=== PATIENT | female | born 1955 | race Caucasian/White ===

== ENCOUNTER → 2017-02-27 | Outpatient (CLI) | payer OTHER, MEDICAID ==
[2016-07-18 16:21] VITALS: BP 154/70
[2017-02-27 09:56] LABS: BASOPHILS # (AUTO) 0.1 X10^3/uL (0.0-0.1); BASOPHILS % (AUTO) 0.5 % (0.2-1.0); EOSINOPHILS # (AUTO) 0.8 x10^3/uL (0.0-0.2); EOSINOPHILS % (AUTO) 4.9 % (0.9-2.9); HEMATOCRIT 41.8 % (36.0-47.0); LYMPHOCYTES # (AUTO) 2.4 X10^3/uL (1.3-2.9); LYMPHOCYTES % (AUTO) 14.4 % (21.0-51.0); MEAN CORPUSCULAR HGB CONC 33.4 g/dL (33.0-35.0); MONOCYTES # (AUTO) 0.8 x10^3/uL (0.3-0.8); MONOCYTES % (AUTO) 4.9 % (0.0-13.0); NEUTROPHILS # (AUTO) 12.3 x10^3/uL (2.2-4.8); NEUTROPHILS % (AUTO) 75.3 % (42.0-75.0); PLATELET COUNT 346 X10^3/uL (150.0-450.0); RED BLOOD COUNT 4.98 X10^6/uL (3.5-5.4); WHITE BLOOD COUNT 16.3 X10^3/uL (3.6-10.0)
[2017-02-27 10:17] LABS: ALANINE AMINOTRANSFERASE 57 Units/L (12-78); ALKALINE PHOSPHATASE 109 Units/L (46-116); ASPARTATE AMINO TRANSFERASE 50 Units/L (15-37); BLOOD UREA NITROGEN 18 mg/dL (7-18); CALCIUM 8.9 mg/dL (8.5-10.1); CARBON DIOXIDE 22.1 mmol/L (21-32); CHLORIDE 107 mmol/L (98-107); CHOL/HDL RATIO 2.8 (0.0-5.0); CHOLESTEROL 124 mg/dL (0-200); CREATININE 1.37 mg/dL (0.55-1.02); GLUCOSE 85 mg/dL (65-99); HDL CHOLESTEROL 45 mg/dL (40-60); SODIUM 141 mmol/L (136-145); TOTAL PROTEIN 7.8 g/dL (6.4-8.2); TRIGLYCERIDES 116 mg/dL (0-150); eGFR BLACK RACES 50 (>60); eGFR NON BLACK RACES 42 (>60)
== END ==
LOC: LAB 09:15
PROVIDERS: ATTEND Nurse Practitioner Family
DX: E78.2 Mixed hyperlipidemia (principal); M85.9 Disorder of bone density and structure, unspecified
CPT/HCPCS: 36415; 80053; 80061; 82306; 85025

== ENCOUNTER → 2017-05-23 | Outpatient (CLI) | payer OTHER, MEDICAID ==
[2016-07-18 16:21] VITALS: BP 154/70
[2017-05-23 10:52] LABS: BASOPHILS % (AUTO) 0.4 % (0.2-1.0); EOSINOPHILS # (AUTO) 0.1 x10^3/uL (0.0-0.2); EOSINOPHILS % (AUTO) 1.2 % (0.9-2.9); HEMOGLOBIN 12.8 g/dL (12.0-16.0); LYMPHOCYTES % (AUTO) 10.5 % (21.0-51.0); MEAN CORPUSCULAR HEMOGLOBIN 29.2 pg (27.0-34.0); MEAN CORPUSCULAR HGB CONC 33.8 g/dL (33.0-35.0); MEAN CORPUSCULAR VOLUME 86.6 fL (80.0-100.0); MEAN PLATELET VOLUME 8.1 fL (7.4-11.0); MONOCYTES # (AUTO) 0.7 x10^3/uL (0.3-0.8); MONOCYTES % (AUTO) 7.2 % (0.0-13.0); NEUTROPHILS # (AUTO) 7.5 x10^3/uL (2.2-4.8); NEUTROPHILS % (AUTO) 80.7 % (42.0-75.0); PLATELET COUNT 305 X10^3/uL (150.0-450.0); RED BLOOD COUNT 4.39 X10^6/uL (3.5-5.4); WHITE BLOOD COUNT 9.3 X10^3/uL (3.6-10.0)
[2017-05-23 10:59] LABS: ALBUMIN 2.8 g/dL (3.4-5.0); CALCIUM 8.8 mg/dL (8.5-10.1); COR CA(FOR HYPOALB) 9.8 mg/dL (8.5-10.1); CREATININE 1.18 mg/dL (0.55-1.02); TOTAL PROTEIN 6.7 g/dL (6.4-8.2)
--- NOTE | 2017-05-23 14:41 | RAD ---
HISTORY: Cough and wheezing Study: Two views of the chest Comparison: August 07, 2016 Findings: The trachea is midline. The cardiac silhouette is unremarkable. The lungs are clear without focal i nfiltrate or effusion. IMPRESSION: 1. No acute cardiopulmonary disease. Reported By:
== END ==
LOC: LAB 10:20
PROVIDERS: ATTEND Nurse Practitioner Family
DX: R68.83 Chills (without fever) (principal); R06.2 Wheezing
CPT/HCPCS: 36415; 71020; 80053; 85025

== ENCOUNTER → 2017-05-28 | Outpatient (CLI) | payer OTHER, MEDICAID ==
[2016-07-18 16:21] VITALS: BP 154/70
== END ==
LOC: LAB 13:28
PROVIDERS: ATTEND Nurse Practitioner Family
DX: E87.6 Hypokalemia (principal)
CPT/HCPCS: 36415; 84132

== ENCOUNTER 2017-06-17 08:53 | Emergency (ER) | payer OTHER, MEDICAID ==
[2017-06-17 09:13] VITALS: BMI 26.2
[2017-06-17] MEDS ORDERED: NS 1000 ML 1,000 ML IV ONE ×2 (09:24→12:27)
--- NOTE | 2017-06-17 09:24 | ED.ABDFE ---
HPI - Time seen Time seen: 10:10 - PCP Primary Care Physician: MOISE GALVIN - Complaint Chief Complaint Doctors Comments: patient reports macy she had abdominal pain for 7-8 months. The pain is epigastric severity of 10, quality sharp, duration months, timing intermitternt, modifyintg factors food. She denies alcohol or cigaretts. Chief Complaint:: EMS TONED OUT TO PT WITH N/V AND ABD PAIN.....ALL WEEKEND LONG .. PT C/O BEING WEAK.. - Source History Provided: Patient, EMS - Mode of arrival Mode of Arrival: EMS - Timing Onset of Chief Complaint: 06/22/17 PMH - PMH Past Medical History: Yes Past Medical History: Angina, Anxiety, Asthma, COPD, Depression, Dyslipidemia, GERD, Hypertension, Seizures Past Surgical History: Yes Surgical History: , Hysterectomy, Joint Replacement, Other - Family History History of Family Medical Conditions: Yes Family Medical History: Diabetes Mellitus, Cancer, Hypertension - Social History Does patient currently use any type of tobacco product: No Have you used tobacco products in the last 12 months: No Type of Tobacco Use: None Does any household member use tobacco: No Alcohol Use: None Do you use any recreational Drugs:: No Lives With: Family Lives Where: Home - infectious screening In the last 2 months have you had wt loss of >10#?: NO Have you had fever, night sweats or hemotysis?: No Have you traveled outside the country in the last 6 months?: No Isolation: Standard ROS - Review of Systems ENTM: No Symptoms Reported Respiratoy: No Symptoms Reported Cardiovascular: No Symptoms Reported Gastrointestinal/Abdominal: No Symptoms Reported Genitourinary: No Symptoms Reported Neurological: No Symptoms Reported Musculoskeletal: No Symptoms Reported Integumentary: No Symptoms Reported Hematologic/Lymphatic: No Symptoms Reported Endocrine: No Symptoms Reported Psychiatric: No Symptoms Reported All Other Systems: Reviewed and Negative PE - Vital Signs Vitals: Temperature 97.8 F Pulse Rate [Brachial] 82 Pulse Rate 104 Respiratory Rate 18 Blood Pressure [Left Arm] 127/67 Blood Pressure [Right Arm] 166/78 Blood Pressure 131/86 O2 Sat by Pulse Oximetry 97 - General General Appearance: Alert, In No Apparent Distress - Head Head Exam: Normal Inspection, Atraumatic - Eyes Eye exam: Normal Appearance, PERRL, EOMI - ENT ENT Exam: Mucous Membranes Dry - Neck Neck Exam: Normal Inspection, Full ROM - Chest Chest Inspection: Normal Inspection, Symmetric Chest Wall Rise - Respiratory Respiratory Exam: Normal Lung Sounds Bilat Respiratory Exam: Bilateral Clear to Auscultation - Cardiovascular Cardiovascular Exam: Regular Rate - Abdominal Exam Abdominal Exam: Soft, Tenderness (epigastric area), Dimnished Bowel Sounds. negative: Mass Abdominal Tenderness: Epigastrium - Rectal Rectal Exam: Deferred - Back Back Exam: Normal Inspection - Extremeties Extremities Exam: Normal Inspection - External Exam: Female: Deferred : Speculum Exam (Female): Deferred : Bimanual Exam (female): Deferred - Neurologic Neurological Exam: Alert, Oriented X3, CN II-XII Intact - Psychiatric Psychiatric Exam: Normal Affect - Skin Skin Exam: Warm, Dry, Intact Course - Treatment Treatment: Hydratin 2L NS - Reevaluation 1st: Improved ROR - Labs Reviewed Laboratory Results Reviewed?: Yes (H Pylori) Result Diagrams: 06/17/17 10:02 06/17/17 10:02 Laboratory: WBC 22.6 X10^3/uL (3.6-10.0) H 06/17/17 10:02 RBC 5.03 X10^6/uL (3.5-5.4) 06/17/17 10:02 Hgb 14.8 g/dL (12.0-16.0) 06/17/17 10:02 Hct 41.5 % (36.0-47.0) 06/17/17 10:02 MCV 82.6 fL (80.0-100.0) 06/17/17 10:02 MCH 29.4 pg (27.0-34.0) 06/17/17 10:02 MCHC 35.6 g/dL (33.0-35.0) H 06/17/17 10:02 RDW 14.7 % (11.6-16.5) 06/17/17 10:02 Plt Count 365 X10^3/uL (150.0-450.0) 06/17/17 10:02 Plt Count Comment Adequate (ADEQUATE) 06/17/17 10:02 MPV 8.8 fL (7.4-11.0) 06/17/17 10:02 Neut % 87.0 % (42.0-75.0) H 06/17/17 10:02 Lymph % 4.9 % (21.0-51.0) L 06/17/17 10:02 [place] % 7.2 % (0.0-13.0) 06/17/17 10:02 Eos % 0.7 % (0.9-2.9) L 06/17/17 10:02 Baso % 0.2 % (0.2-1.0) 06/17/17 10:02 Neut # 19.7 x10^3/uL (2.2-4.8) H 06/17/17 10:02 Lymph # 1.1 X10^3/uL (1.3-2.9) L 06/17/17 10:02 [place] # 1.6 x10^3/uL (0.3-0.8) H 06/17/17 10:02 Eos # 0.2 x10^3/uL (0.0-0.2) 06/17/17 10:02 Baso # 0.0 X10^3/uL (0.0-0.1) 06/17/17 10:02 Absolute Nucleated RBC 0.1 /100WBC 06/17/17 10:02 Total Counted 100 06/17/17 10:02 Neutrophils % (Manual) 88 % (39-76) H 06/17/17 10:02 Lymphocytes % (Manual) 5 % (13-43) L 06/17/17 10:02 Monocytes % (Manual) 6 % (4-9) 06/17/17 10:02 Eosinophils % (Manual) 1 % (0-6) 06/17/17 10:02 Plt Morphology Comment Normal (NORMAL) 06/17/17 10:02 RBC Morphology Normal (NORMAL) 06/17/17 10:02 Sodium 139 mmol/L (136-145) 06/17/17 10:02 Corrected Sodium 139 mmol/L (136-145) 06/17/17 10:02 Potassium 3.3 mmol/L (3.5-5.1) L 06/17/17 10:02 Chloride 102 mmol/L (98-107) 06/17/17 10:02 Carbon Dioxide 23.4 mmol/L (21-32) 06/17/17 10:02 BUN 38 mg/dL (7-18) H 06/17/17 10:02 Creatinine 2.55 mg/dL (0.55-1.02) H 06/17/17 10:02 Est GFR (MDRD) Af Amer 25 (>60) L 06/17/17 10:02 Est GFR (MDRD) Non-Af 20 (>60) L 06/17/17 10:02 Glucose 112 mg/dL (65-99) H 06/17/17 10:02 Calcium 8.4 mg/dL (8.5-10.1) L 06/17/17 10:02 Corrected Calcium 9.6 mg/dL (8.5-10.1) 06/17/17 10:02 Total Bilirubin 0.40 mg/dL (0.2-1.0) 06/17/17 10:02 AST 669 Units/L (15-37) H 06/17/17 10:02 ALT 479 Units/L (12-78) H 06/17/17 10:02 Alkaline Phosphatase 116 Units/L (46-116) 06/17/17 10:02 Total Protein 6.9 g/dL (6.4-8.2) 06/17/17 10:02 Albumin 2.5 g/dL (3.4-5.0) L 06/17/17 10:02 Globulin 4.4 g/dL (2.5-4.5) 06/17/17 10:02 Albumin/Globulin Ratio 0.6 Ratio (1.1-2.1) L 06/17/17 10:02 Specimen Type Clean catch urine 06/17/17 11:37 Urine Color Emilie (YELLOW) 06/17/17 11:37 Urine Appearance Hazy (CLEAR) 06/17/17 11:37 Urine pH 6.0 (5.0 - 8.0) 06/17/17 11:37 Ur Specific [place] 1.015 (1.000-1.030) 06/17/17 11:37 Urine Protein 3+ (NEGATIVE) 06/17/17 11:37 Urine Glucose (UA) Negative (NEGATIVE) 06/17/17 11:37 Urine Ketones Negative (NEGATIVE) 06/17/17 11:37 Urine Occult Blood 5+ (NEGATIVE) 06/17/17 11:37 Urine Nitrite Negative (NEGATIVE) 06/17/17 11:37 Urine Bilirubin Negative (NEGATIVE) 06/17/17 11:37 Urine Urobilinogen Normal (NORMAL) 06/17/17 11:37 Ur Leukocyte Esterase 1+ (NEGATIVE) 06/17/17 11:37 Urine RBC 2-5 /HPF (NEGATIVE) 06/17/17 11:37 Urine WBC 4-8 /HPF (NEGATIVE) 06/17/17 11:37 Ur Squamous Epith Cells Moderate /HPF (NEGATIVE) 06/17/17 11:37 Amorphous Sediment Trace /HPF (NEGATIVE) 06/17/17 11:37 Urine Bacteria Negative /HPF (NEGATIVE) 06/17/17 11:37 Fine Granular Casts Few /LPF (NEGATIVE) 06/17/17 11:37 Ur Culture Indicated? No/not indicated 06/17/17 11:37 H. pylori IgG Antibody Positive (NEGATIVE) A 06/17/17 10:02 - XRAY XRAY Interpreted by: Radiologist (KUb:Prominent but nonspecifif bowel gas that may reflect a mild ileus or gastroenteritis.) - Diagnosis Discharge Problem: Dehydration with hyponatremia, Abnormal LFTs (liver function tests) Gastritis Qualifiers: Gastritis type: other gastritis Chronicity: acute Gastritis bleeding: without bleeding Qualified Code(s): K29.00 - Acute gastritis without bleeding - Discharge Plan Condition: Stable - Follow ups/Referrals Follow ups/Referrals: NFD,None [Primary Care Provider] - 3 days - Instructions
[2017-06-17] MEDS ORDERED: TORADOL 30 MG VIAL IVP ONE (09:26)
[2017-06-17] MEDS ORDERED: TORADOL 30 MG VIAL ONE (09:29)
[2017-06-17] MEDS ORDERED: NS 1000 ML 1,000 ML ONE ×2 (09:29→12:12)
[2017-06-17 10:10] LABS: BASOPHILS % (AUTO) 0.2 % (0.2-1.0); EOSINOPHILS # (AUTO) 0.2 x10^3/uL (0.0-0.2); EOSINOPHILS % (AUTO) 0.7 % (0.9-2.9); HEMATOCRIT 41.5 % (36.0-47.0); HEMOGLOBIN 14.8 g/dL (12.0-16.0); LYMPHOCYTES # (AUTO) 1.1 X10^3/uL (1.3-2.9); LYMPHOCYTES % (AUTO) 4.9 % (21.0-51.0); MEAN CORPUSCULAR HEMOGLOBIN 29.4 pg (27.0-34.0); MEAN CORPUSCULAR HGB CONC 35.6 g/dL (33.0-35.0); MEAN CORPUSCULAR VOLUME 82.6 fL (80.0-100.0); MEAN PLATELET VOLUME 8.8 fL (7.4-11.0); MONOCYTES # (AUTO) 1.6 x10^3/uL (0.3-0.8); MONOCYTES % (AUTO) 7.2 % (0.0-13.0); NEUTROPHILS # (AUTO) 19.7 x10^3/uL (2.2-4.8); PLATELET COUNT 365 X10^3/uL (150.0-450.0); RED BLOOD COUNT 5.03 X10^6/uL (3.5-5.4); RED CELL DISTRIBUTION WIDTH 14.7 % (11.6-16.5)
[2017-06-17 10:18] LABS: WHITE BLOOD COUNT 22.6 X10^3/uL (3.6-10.0)
[2017-06-17 10:22] LABS: PLATELET MORPHOLOGY COMMENT NORMAL (NORMAL)
[2017-06-17 10:25] LABS: ALBUMIN 2.5 g/dL (3.4-5.0); CALCIUM 8.4 mg/dL (8.5-10.1); CARBON DIOXIDE 23.4 mmol/L (21-32); COR CA(FOR HYPOALB) 9.6 mg/dL (8.5-10.1); CREATININE 2.55 mg/dL (0.55-1.02); TOTAL PROTEIN 6.9 g/dL (6.4-8.2)
--- NOTE | 2017-06-17 10:33 | RAD ---
HISTORY: Abdominal pain, epigastric Study: KUB Comparison: None Findings: Evaluation of the abdomen demonstrates a prominent amount of large and small bowel gas without abnorm al distention. No free air is suggested. No pathological soft tissue mass or calcification can be ob served. There is a partially visualized left hip prosthesis.. IMPRESSION: 1. Prominent but nonspecific bowel gas that may reflect a mild ileus or gastroenteritis Reported By:
[2017-06-17] MEDS ORDERED: K-DUR TAB 20 MEQ PO ONE ×2 (11:15→11:27)
[2017-06-17 11:44] LABS: BILIRUBIN,URINE NEGATIVE (NEGATIVE); BLOOD/HEMOGLOBIN,URINE 5+ (NEGATIVE); GLUCOSE, URINE NEGATIVE (NEGATIVE); KETONES,URINE NEGATIVE (NEGATIVE); LEUKOCYTE ESTERASE ,URINE 1+ (NEGATIVE); NITRITES,URINE NEGATIVE (NEGATIVE); PROTEIN,URINE 3+ (NEGATIVE); UROBILINOGEN,URINE NORMAL (NORMAL)
[2017-06-17 11:56] LABS: AMORPHOUS SEDIMENT,UR TRACE /HPF (NEGATIVE); APPEARANCE,URINE HAZY (CLEAR); BACTERIA,URINE NEGATIVE /HPF (NEGATIVE); COLOR,URINE AMBER (YELLOW); SQUAMOUS EPITHELIAL CELL,UR MODERATE /HPF (NEGATIVE)
[2017-06-17 12:00] LABS: FINE GRANULAR CASTS,URINE FEW /LPF (NEGATIVE)
[2017-06-17] MEDS ORDERED: LEVSIN/MAALOX/LIDOC VISC ONE (12:07)
[2017-06-17] MEDS ORDERED: LEVSIN/MAALOX/LIDOC VISC PO ONE (12:08)
[2017-06-17 14:00] VITALS: BP 128/61
== END 2017-06-17 14:25 | disposition home or self-care (01) ==
LOC: ER 08:53
DX: K59.00 Constipation, unspecified (principal); E86.0 Dehydration; E87.1 Hypo-osmolality and hyponatremia; R94.5 Abnormal results of liver function studies
CPT/HCPCS: 36415; 74000; 80053; 81001; 85025; 86677; 96365; 96367; 96374; 99283; A4222; J1885

== ENCOUNTER 2021-02-15 17:38 | Observation (INO) ==
[2021-02-15] MEDS ORDERED: XANAX PO PRN (18:01)
[2021-02-15] MEDS ORDERED: ZOFRAN INJ 4 MG VIAL IVP PRN (18:01)
--- NOTE | 2021-02-15 18:05 | DR.H&P ---
H&P - History & Physical for Day of: H&P Date: 02/15/21 - Chief Complaint Chief Complaint: "CANT KEEP ANYTHING DOWN", CHOKING - History of Present Illness History of Present Illness: PT IS 65 WF, DIRECT ADMIT FROM DR PHIPPS OFFICE WITH CO INTRACTABLE NV AND DYSPHAGIA. PT HAS PMH OF GERD WITH GASTRIC ULCER DISEASE, PT HAS BEEN ON PROTONIX BID AND CARAFATE. PT DENIES ABDOMINAL TENDERNESS, BUT FEELS "LIKE HUNGER PAIN" PT HAS PMH OF COPD, CHF, HTN, OA, BALTAZAR. PT ADMITTED FOR TREATMENT OF ACUTE ILLNESS. - Past Medical History Past Medical History: Angina, Hypertension, Dyslipidemia, Depression, Anxiety, Seizures, COPD, Asthma, GERD Additional Medical History: Chronic Back Pain, Bipolar disorder, Muscle Weakness, Previous blood transfusion - Past Surgical History Surgical History: , Hysterectomy, Joint Replacement, Other Additional Surgical History: Deviated Septum Repair - Family History Family Medical History: Diabetes Mellitus, Cancer, Hypertension - Social History Does patient currently use any type of tobacco product: No Have you used tobacco products in the last 12 months: No Type of Tobacco Use: None Does any household member use tobacco: No Alcohol Use: None Drug Use: None Prescription drug monitoring program results: PDMP reviewed and no concerns identified - Medications Home Medications: codeine Allergy (Verified 06/17/17 09:14) promethazine [From Phenergan] Allergy (Verified 06/17/17 09:14) Sulfa (Sulfonamide Antibiotics) [SULFA] Allergy (Verified 06/17/17 09:14) - Review of Systems Constitutional: Weakness, Malaise Eyes: No Symptoms Reported ENT: No Symptoms Reported Respiratory: SOB with Excertion, Wheezing Cardiovascular: denies: Chest Pain, Edema Gastrointestinal: Nausea, Vomiting Genitourinary: No Symptoms Reported Musculoskeletal: Back Pain Skin: No Symptoms Reported Neurological: Weakness - Physical Exam Vital Signs: Blood Pressure [Right Arm] 161/76 Oriented: Normal Eyes: Normal Ear: Normal Nose: Normal Throat: Dry Respiratory: RLL Diminished, LLL Diminished Cardiovascular: Normal. negative: Edema : Normal Auscultation: Bowel Sounds: Normal Palpation: Normal Tenderness: Epigastric, Mild Skin: Decreased Turgur Musculoskeletal: Back:Thoracic, Back:Lumbar Psychiatric: Anxiety Affect: Anxious Speech Pattern: Clear, Appropriate - Assessment/Plan (1) Dysphagia Status: Acute Plan: ADMIT, NPO. IV HYDRATION, PPI THERAPY, KUB. AMYLASE AND LIPASE ON ADMISSION. RESP CONSULT FOR MANAGEMENT OF COPD. CONSULT DR RAMIREZ, NAUSEA CONTROL (2) Intractable vomiting with nausea Status: Acute (3) COPD (chronic obstructive pulmonary disease) Status: Chronic (4) Degenerative joint disease (DJD) of lumbar spine Qualifiers: Spinal osteoarthritis complication: with radiculopathy Qualified Code(s): M47.26 - Other spondylosis with radiculopathy, lumbar region Status: Chronic (5) Dehydration with hyponatremia Status: Acute (6) Essential hypertension Status: Chronic (7) BALTAZAR (generalized anxiety disorder) Status: Chronic (8) GERD (gastroesophageal reflux disease) Status: Chronic - Allergies Allergies/Adverse Reactions: Allergies Allergy/AdvReac Type Severity Reaction Status Date / Time codeine Allergy Verified 06/17/17 09:14 promethazine [From Phenergan] Allergy Verified 06/17/17 09:14 Sulfa (Sulfonamide Allergy Verified 06/17/17 09:14 Antibiotics) [SULFA]
[2021-02-15 19:23] LABS: BASOPHILS # (AUTO) 0.1 X10^3/uL (0.0-0.1); BASOPHILS % (AUTO) 0.8 % (0.2-1.0); EOSINOPHILS # (AUTO) 0.4 x10^3/uL (0.0-0.2); HEMATOCRIT 38.5 % (36.0-47.0); HEMOGLOBIN 12.5 g/dL (12.0-16.0); LYMPHOCYTES # (AUTO) 2.1 X10^3/uL (1.3-2.9); LYMPHOCYTES % (AUTO) 15.2 % (21.0-51.0); MEAN CORPUSCULAR HEMOGLOBIN 27.4 pg (27.0-34.0); MEAN CORPUSCULAR HGB CONC 32.5 g/dL (33.0-35.0); MEAN CORPUSCULAR VOLUME 84.4 fL (80.0-100.0); MEAN PLATELET VOLUME 8.3 fL (7.4-11.0); MONOCYTES # (AUTO) 1.3 x10^3/uL (0.3-0.8); MONOCYTES % (AUTO) 9.8 % (0.0-13.0); NEUTROPHILS # (AUTO) 9.7 x10^3/uL (2.2-4.8); NEUTROPHILS % (AUTO) 71.2 % (42.0-75.0); PLATELET COUNT 407 X10^3/uL (150.0-450.0); RED BLOOD COUNT 4.57 X10^6/uL (3.5-5.4); RED CELL DISTRIBUTION WIDTH 15.8 % (11.6-16.5); WHITE BLOOD COUNT 13.7 X10^3/uL (3.6-10.0)
[2021-02-15 19:32] LABS: ALANINE AMINOTRANSFERASE 28 Units/L (12-78); ALBUMIN 3.7 g/dL (3.4-5.0); ALKALINE PHOSPHATASE 114 Units/L (46-116); AMYLASE 35 Units/L (25-115); ASPARTATE AMINO TRANSFERASE 40 Units/L (15-37); BLOOD UREA NITROGEN 31 mg/dL (7-18); CALCIUM 8.9 mg/dL (8.5-10.1); CHLORIDE 103 mmol/L (98-107); CREATININE 1.27 mg/dL (0.55-1.02); LIPASE 78 Units/L (73-393); MAGNESIUM 2.2 mg/dL (1.7-2.9); SODIUM 141 mmol/L (136-145); TOTAL PROTEIN 7.8 g/dL (6.4-8.2); eGFR NON BLACK RACES 45 (>60)
[2021-02-15] MEDS ORDERED: PROVENTIL NEB TX 0.083% 2.5MG/ 3ML ONE (20:42)
[2021-02-15] MEDS: PROVENTIL NEB TX 0.083% 2.5MG/ 3ML NEB SCH (21:00)
[2021-02-15] MEDS: PROTONIX INJ 40 MG VIAL IVP SCH ×2 (21:55)
[2021-02-15] MEDS: NS 1000 ML 1,000 ML IV SCH (21:55)
--- NOTE | 2021-02-15 22:36 | RAD ---
HISTORYINTRACTABLE N/V Relevant Clinical [id number]/16/2017FINDINGSEvaluation of the abdomen demonstrates a normal bowel gas pattern. There is a considerable amount of fecal material throughout the colon suggesting mild co nstipation. Left hip arthroplasty. No pathological soft tissue mass or calcification can be observed. The bony structures are grossly intact.IMPRESSIONMild constipationElectronically signed by: Lio champion (Feb 15, 2021 22:34:05)
[2021-02-15 22:54] LABS: BILIRUBIN,URINE NEGATIVE (NEGATIVE); BLOOD/HEMOGLOBIN,URINE 1+ (NEGATIVE); GLUCOSE, URINE NEGATIVE (NEGATIVE); KETONES,URINE NEGATIVE (NEGATIVE); LEUKOCYTE ESTERASE ,URINE 3+ (NEGATIVE); NITRITES,URINE NEGATIVE (NEGATIVE); PROTEIN,URINE 1+ (NEGATIVE); UROBILINOGEN,URINE NORMAL (NORMAL)
[2021-02-15 23:07] LABS: APPEARANCE,URINE CLEAR (CLEAR); COLOR,URINE STRAW (YELLOW)
[2021-02-15 23:08] LABS: BACTERIA,URINE TRACE /HPF (NEGATIVE); RBC,URINE 0-2 /HPF (0-3); SQUAMOUS EPITHELIAL CELL,UR FEW /HPF (NEGATIVE)
[2021-02-16 03:02] VITALS: BMI 36.1
[2021-02-16 05:25] LABS: BASOPHILS # (AUTO) 0.1 X10^3/uL (0.0-0.1); BASOPHILS % (AUTO) 0.9 % (0.2-1.0); EOSINOPHILS # (AUTO) 0.3 x10^3/uL (0.0-0.2); EOSINOPHILS % (AUTO) 3.4 % (0.9-2.9); HEMATOCRIT 33.3 % (36.0-47.0); HEMOGLOBIN 10.9 g/dL (12.0-16.0); LYMPHOCYTES # (AUTO) 1.9 X10^3/uL (1.3-2.9); LYMPHOCYTES % (AUTO) 19.3 % (21.0-51.0); MEAN CORPUSCULAR HEMOGLOBIN 27.3 pg (27.0-34.0); MEAN CORPUSCULAR HGB CONC 32.7 g/dL (33.0-35.0); MEAN CORPUSCULAR VOLUME 83.4 fL (80.0-100.0); MEAN PLATELET VOLUME 8.3 fL (7.4-11.0); MONOCYTES % (AUTO) 9.8 % (0.0-13.0); NEUTROPHILS # (AUTO) 6.7 x10^3/uL (2.2-4.8); NEUTROPHILS % (AUTO) 66.6 % (42.0-75.0); PLATELET COUNT 336 X10^3/uL (150.0-450.0); RED CELL DISTRIBUTION WIDTH 15.6 % (11.6-16.5)
[2021-02-16 05:37] LABS: ALANINE AMINOTRANSFERASE 23 Units/L (12-78); ALKALINE PHOSPHATASE 95 Units/L (46-116); ASPARTATE AMINO TRANSFERASE 30 Units/L (15-37); BLOOD UREA NITROGEN 27 mg/dL (7-18); CALCIUM 8.5 mg/dL (8.5-10.1); CARBON DIOXIDE 25.7 mmol/L (21-32); CHLORIDE 108 mmol/L (98-107); COR CA(FOR HYPOALB) 9.3 mg/dL (8.5-10.1); SODIUM 143 mmol/L (136-145); TOTAL PROTEIN 6.2 g/dL (6.4-8.2); eGFR NON BLACK RACES 59 (>60)
[2021-02-16] MEDS: PROVENTIL NEB TX 0.083% 2.5MG/ 3ML NEB SCH (08:26)
[2021-02-16] MEDS ORDERED: PULMICORT NEB TX 0.5 MG NEB SCH ×2 (09:00→21:00)
[2021-02-16] MEDS: NS 1000 ML 1,000 ML IV SCH (09:17)
[2021-02-16] MEDS: PROTONIX INJ 40 MG VIAL IVP SCH (09:17)
[2021-02-16] MEDS ORDERED: PROVENTIL NEB TX 0.083% 2.5MG/ 3ML NEB SCH (13:00)
[2021-02-16] MEDS ORDERED: D5 LR 1000 ML 1,000 ML IV ONE (13:39)
[2021-02-16] MEDS ORDERED: DIPRIVAN VIAL 20 ML ONE (14:11)
[2021-02-16 16:21] VITALS: BP 145/64
[2021-02-16] MEDS ORDERED: PROTONIX TAB 40 MG PO SCH (21:00)
== END 2021-02-16 16:37 | disposition home or self-care (01) ==
LOC: MED/SURG
PROVIDERS: ADMIT Internal Medicine; ATTEND Internal Medicine
DX: K22.2 Esophageal obstruction; E78.2 Mixed hyperlipidemia; K29.00 Acute gastritis without bleeding; M47.26 Other spondylosis with radiculopathy, lumbar region; R11.2 Nausea with vomiting, unspecified; Z20.822 Contact with and (suspected) exposure to COVID-19; J44.9 Chronic obstructive pulmonary disease, unspecified; I10 Essential (primary) hypertension; E87.1 Hypo-osmolality and hyponatremia; R10.13 Epigastric pain; K21.00 Gastro-esophageal reflux disease with esophagitis, without bleeding; F41.8 Other specified anxiety disorders; R13.11 Dysphagia, oral phase; K59.09 Other constipation; F32.89 Other specified depressive episodes; E86.0 Dehydration; K22.4 Dyskinesia of esophagus; M19.90 Unspecified osteoarthritis, unspecified site; I25.10 Atherosclerotic heart disease of native coronary artery without angina pectoris

== ENCOUNTER 2021-07-14 17:53 | Observation (INO) ==
--- NOTE | 2021-07-14 18:29 | DR.AMS ---
HPI Time Seen Time Seen by Provider: 07/14/21 18:25 PCP Primary Care Physician: DR. HARPAL HARPER Complaint Chief Complaint:: PT'S BROTHER & SISTER STATES NEIGHBOR CALLED STATING PT WAS NOT ACTING RIGHT. PT WAS IN CAR TRYING TO DRIVE. PT DOESN'T DRIVE. UPON ARRIVAL PT A&O X3. COVID-19 Coronavirus risk:travel/contact w/high risk person: No Has patient experienced Coronavirus symptoms: No Source History Provided: Patient and Family Member Mode of Arrival Mode of Arrival: Ambulatory Timing Onset of Chief Complaint: 07/14/21 PMH PMH Past Medical History: Yes Past Medical History: Angina, Anxiety, Asthma, COPD, Depression, Dyslipidemia, GERD, Hypertension and Seizures Past Surgical History: Yes Surgical History: , Hysterectomy and Other Family History History of Family Medical Conditions: Yes Family Medical History: Cancer, Coronary Artery Disease and Hypertension Social History Do you use any recreational Drugs:: No Travel Risk Coronavirus risk:travel/contact w/high risk person: No Has patient experienced Coronavirus symptoms: No Infectious screening Have you traveled outside the country in the last 6 months?: No Isolation: Standard PE Vitals Vital Signs: Temp Pulse Resp BP BP Pulse Ox 07/14/21 23:00 77 23 119/59 07/14/21 22:45 98 H 36 H 07/14/21 22:30 78 14 124/58 99 07/14/21 22:15 78 20 99 07/14/21 22:00 79 25 H 120/56 97 07/14/21 21:45 74 36 H 85 L 07/14/21 21:30 75 27 H 108/55 85 L 07/14/21 21:15 75 26 H 85 L 07/14/21 21:00 75 17 118/59 80 L 07/14/21 20:45 79 37 H 07/14/21 20:30 103 H 34 H 108/58 07/14/21 20:15 96 H 40 H 07/14/21 20:05 79 22 94/52 97 07/14/21 20:00 97 H 19 07/14/21 19:45 79 35 H 96 07/14/21 19:30 80 24 98 07/14/21 19:15 80 26 H 99 07/14/21 19:11 84 82 L 07/14/21 17:54 98.4 F 95 H 16 132/58 94 L 02/16/21 15:40 145/64 ROR Labs Reviewed Result Diagrams: 07/14/21 18:30 07/14/21 18:30 Laboratory: WBC 13.9 X10^3/uL (3.6-10.0) H 07/14/21 18:30 RBC 4.31 X10^6/uL (3.5-5.4) 07/14/21 18:30 Hgb 11.3 g/dL (12.0-16.0) L 07/14/21 18:30 Hct 35.6 % (36.0-47.0) L 07/14/21 18:30 MCV 82.7 fL (80.0-100.0) 07/14/21 18:30 MCH 26.1 pg (27.0-34.0) L 07/14/21 18:30 MCHC 31.6 g/dL (33.0-35.0) L 07/14/21 18:30 RDW 17.7 % (11.6-16.5) H 07/14/21 18:30 Plt Count 453 X10^3/uL (150.0-450.0) H 07/14/21 18:30 MPV 7.9 fL (7.4-11.0) 07/14/21 18:30 Neut % (Auto) 76.2 % (42.0-75.0) H 07/14/21 18:30 Lymph % (Auto) 9.3 % (21.0-51.0) L 07/14/21 18:30 [place] % (Auto) 9.8 % (0.0-13.0) 07/14/21 18:30 Eos % (Auto) 3.4 % (0.9-2.9) H 07/14/21 18:30 Baso % (Auto) 1.3 % (0.2-1.0) H 07/14/21 18:30 Neut # (Auto) 10.6 x10^3/uL (2.2-4.8) H 07/14/21 18:30 Lymph # (Auto) 1.3 X10^3/uL (1.3-2.9) 07/14/21 18:30 [place] # (Auto) 1.4 x10^3/uL (0.3-0.8) H 07/14/21 18:30 Eos # (Auto) 0.5 x10^3/uL (0.0-0.2) H 07/14/21 18:30 Baso # (Auto) 0.2 X10^3/uL (0.0-0.1) H 07/14/21 18:30 Absolute Nucleated RBC 0.1 /100WBC 07/14/21 18:30 Sodium 142 mmol/L (136-145) 07/14/21 18:30 Corrected Sodium TNP 07/14/21 18:30 Potassium 3.6 mmol/L (3.5-5.1) 07/14/21 18:30 Chloride 106 mmol/L (98-107) 07/14/21 18:30 Carbon Dioxide 24.4 mmol/L (21-32) 07/14/21 18:30 BUN 23 mg/dL (7-18) H 07/14/21 18:30 Creatinine 2.11 mg/dL (0.55-1.02) H 07/14/21 18:30 Est GFR (MDRD) Af Amer 30 (>60) L 07/14/21 18:30 Est GFR (MDRD) Non-Af 25 (>60) L 07/14/21 18:30 Glucose 96 mg/dL (65-99) 07/14/21 18:30 Calcium 8.8 mg/dL (8.5-10.1) 07/14/21 18:30 Corrected Calcium 9.4 mg/dL (8.5-10.1) 07/14/21 18:30 Total Bilirubin 0.30 mg/dL (0.2-1.0) 07/14/21 18:30 AST 40 Units/L (15-37) H 07/14/21 18:30 ALT 21 Units/L (12-78) 07/14/21 18:30 Alkaline Phosphatase 95 Units/L (46-116) 07/14/21 18:30 Creatine Kinase 537 Units/L (26-192) H 07/14/21 18:30 CK-MB (CK-2) 6.7 ng/mL (0-4.0) H* 07/14/21 18:30 CK/CKMB % Calc 1.3 % (<4) 07/14/21 18:30 Troponin I < 0.02 ng/mL (0-1.5) 07/14/21 18:30 Total Protein 7.2 g/dL (6.4-8.2) 07/14/21 18:30 Albumin 3.3 g/dL (3.4-5.0) L 07/14/21 18:30 Globulin 3.9 g/dL (2.5-4.5) 07/14/21 18:30 Albumin/Globulin Ratio 0.8 Ratio (1.1-2.1) L 07/14/21 18:30 SARS-CoV-2 (PCR) Negative (NEGATIVE) 07/14/21 21:58 Influenza Type A (PCR) Negative (NEGATIVE) 07/14/21 21:58 Influenza Type B (PCR) Negative (NEGATIVE) 07/14/21 21:58 RSV (PCR) Negative (NEGATIVE) 07/14/21 21:58 Opioid Opioid Risk Tool Age (Jon box if 16-45): No History of Preadolescent Sexual Abuse: No Total: 0 Total Score Risk Category: Low Risk Copyright: Chele COBURN predicting aberrant behaviors Instructions Forms: Precautions for COVID19 [facility] Social Distancing
[2021-07-14 19:01] LABS: BASOPHILS # (AUTO) 0.2 X10^3/uL (0.0-0.1); BASOPHILS % (AUTO) 1.3 % (0.2-1.0); EOSINOPHILS # (AUTO) 0.5 x10^3/uL (0.0-0.2); EOSINOPHILS % (AUTO) 3.4 % (0.9-2.9); HEMATOCRIT 35.6 % (36.0-47.0); HEMOGLOBIN 11.3 g/dL (12.0-16.0); LYMPHOCYTES # (AUTO) 1.3 X10^3/uL (1.3-2.9); LYMPHOCYTES % (AUTO) 9.3 % (21.0-51.0); MEAN CORPUSCULAR HEMOGLOBIN 26.1 pg (27.0-34.0); MEAN CORPUSCULAR HGB CONC 31.6 g/dL (33.0-35.0); MEAN CORPUSCULAR VOLUME 82.7 fL (80.0-100.0); MEAN PLATELET VOLUME 7.9 fL (7.4-11.0); MONOCYTES # (AUTO) 1.4 x10^3/uL (0.3-0.8); MONOCYTES % (AUTO) 9.8 % (0.0-13.0); NEUTROPHILS # (AUTO) 10.6 x10^3/uL (2.2-4.8); NEUTROPHILS % (AUTO) 76.2 % (42.0-75.0); PLATELET COUNT 453 X10^3/uL (150.0-450.0); RED BLOOD COUNT 4.31 X10^6/uL (3.5-5.4); RED CELL DISTRIBUTION WIDTH 17.7 % (11.6-16.5); WHITE BLOOD COUNT 13.9 X10^3/uL (3.6-10.0)
--- NOTE | 2021-07-14 19:28 | CT ---
CT head without contrastIndication: Altered mental statusCOMPARISONNo recent prior imaging of the brain available.TECHNIQUEAxial images from the skullbase to the vertex without contrast. Coronal and sagittal reformats provided.FINDINGSThere is no acute intracranial hemorrhage, mass or mass effect. There is hypodensity in the right temporal lobe, mostly along the sylvian fissure on coronal image 18, compatible with infarction. This is probably chronic to subacute, correlate clinically. Hypodensity in the posterior right parietal lobe on axial image 24 is compatible with old infarction as well. No large area of hypoattenuation to suggest acute infarct is identified. There is moderate atrophy with ex vacuo ventricular and sulcal enlargement. No extra-axial fluid collections identified. No osseous lesions seen. Paranasal sinuses and mastoid air cells are clear.IMPRESSION1. No acute intracranial hemorrhage2. 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 However, there is concern for acute infarction, MR is most sensitive and specific.Electronically signed by: LARRY PATEL (Jul 14, 2021 19:25:09)
--- NOTE | 2021-07-14 19:33 | RAD ---
Chest AP portableIndication: Cough. Altered mental statusCOMPARISONApril 2020FINDINGSPatchy right lower lung opacities possible. Monitor leads obscure detail. Heart size is prominent lungs appear borderline hyperinflated. There is no pneumothorax or large effusion.IMPRESSIONPatchy right lower lung opacity could reflect developing pneumonia. Overlapping structure limits sensitivity. Follow-up with PA and lateral chest to better evaluate.Electronically signed by: LARRY PATEL (Jul 14, 2021 19:32:09)
[2021-07-14 19:36] LABS: ALANINE AMINOTRANSFERASE 21 Units/L (12-78); ALBUMIN 3.3 g/dL (3.4-5.0); ALKALINE PHOSPHATASE 95 Units/L (46-116); ASPARTATE AMINO TRANSFERASE 40 Units/L (15-37); BLOOD UREA NITROGEN 23 mg/dL (7-18); CALCIUM 8.8 mg/dL (8.5-10.1); CARBON DIOXIDE 24.4 mmol/L (21-32); CHLORIDE 106 mmol/L (98-107); CKMB % 1.3 % (<4); COR CA(FOR HYPOALB) 9.4 mg/dL (8.5-10.1); CREATINE KINASE 537 Units/L (26-192); CREATININE 2.11 mg/dL (0.55-1.02); SODIUM 142 mmol/L (136-145); TOTAL PROTEIN 7.2 g/dL (6.4-8.2); TROPONIN I < 0.02 ng/mL (0-1.5); eGFR NON BLACK RACES 25 (>60)
[2021-07-14 19:39] LABS: CREATINE KINASE MB 6.7 ng/mL (0-4.0)
[2021-07-14] MEDS ORDERED: NS 1,000 ML IV 1,000 ML IV SCH (23:45)
[2021-07-14] MEDS ORDERED: XOPENEX 1.25 MG/3 ML NEBULE NEB PRN (23:48)
[2021-07-15] MEDS ORDERED: ROCEPHIN VIAL 1 GRAM 1 G in NS 100 ML IV + SPIKE MINIBAG* 100 ML IV ONE ×2
[2021-07-15] MEDS ORDERED: SALINE 3% 15 ML NEB TX ONE (00:20)
[2021-07-15 00:36] LABS: CKMB % 1.2 % (<4); CREATINE KINASE 409 Units/L (26-192); TROPONIN I < 0.02 ng/mL (0-1.5)
[2021-07-15] MEDS ORDERED: SALINE 3% 15 ML NEB TX NEB ONE (00:38)
[2021-07-15] MEDS: NS 1,000 ML IV 1,000 ML IV SCH ×2 (00:44→13:19)
[2021-07-15 01:30] VITALS: BMI 36.6
[2021-07-15 05:08] LABS: BASOPHILS # (AUTO) 0.1 X10^3/uL (0.0-0.1); BASOPHILS % (AUTO) 0.7 % (0.2-1.0); EOSINOPHILS # (AUTO) 0.3 x10^3/uL (0.0-0.2); EOSINOPHILS % (AUTO) 2.8 % (0.9-2.9); HEMATOCRIT 33.7 % (36.0-47.0); LYMPHOCYTES # (AUTO) 1.3 X10^3/uL (1.3-2.9); LYMPHOCYTES % (AUTO) 12.9 % (21.0-51.0); MEAN CORPUSCULAR HEMOGLOBIN 26.8 pg (27.0-34.0); MEAN CORPUSCULAR HGB CONC 32.6 g/dL (33.0-35.0); MEAN CORPUSCULAR VOLUME 82.2 fL (80.0-100.0); MEAN PLATELET VOLUME 7.8 fL (7.4-11.0); MONOCYTES # (AUTO) 1.1 x10^3/uL (0.3-0.8); MONOCYTES % (AUTO) 10.6 % (0.0-13.0); NEUTROPHILS # (AUTO) 7.5 x10^3/uL (2.2-4.8); PLATELET COUNT 423 X10^3/uL (150.0-450.0); RED BLOOD COUNT 4.09 X10^6/uL (3.5-5.4); RED CELL DISTRIBUTION WIDTH 18.2 % (11.6-16.5); WHITE BLOOD COUNT 10.3 X10^3/uL (3.6-10.0)
[2021-07-15 05:53] LABS: ALANINE AMINOTRANSFERASE 17 Units/L (12-78); ALBUMIN 2.7 g/dL (3.4-5.0); ALKALINE PHOSPHATASE 84 Units/L (46-116); ASPARTATE AMINO TRANSFERASE 31 Units/L (15-37); BLOOD UREA NITROGEN 18 mg/dL (7-18); CALCIUM 8.3 mg/dL (8.5-10.1); CARBON DIOXIDE 23.7 mmol/L (21-32); CHLORIDE 109 mmol/L (98-107); CKMB % 1.3 % (<4); COR CA(FOR HYPOALB) 9.3 mg/dL (8.5-10.1); COR NA(FOR HYPERGLY) 143 mmol/L (136-145); CREATINE KINASE 308 Units/L (26-192); MAGNESIUM 2.4 mg/dL (1.7-2.9); SODIUM 143 mmol/L (136-145); TOTAL PROTEIN 6.3 g/dL (6.4-8.2); TROPONIN I < 0.02 ng/mL (0-1.5); eGFR NON BLACK RACES 37 (>60)
[2021-07-15 05:56] LABS: CREATINE KINASE MB 4.1 ng/mL (0-4.0)
[2021-07-15] MEDS: PULMICORT NEB TX 0.5 MG NEB SCH ×2 (08:10→20:45)
[2021-07-15] MEDS ORDERED: POTASSIUM CHLORIDE LIQ 20 MEQ UDC PO PRN (09:00)
[2021-07-15] MEDS ORDERED: POTASSIUM CHL 40 MEQ/NS 0.45% 500 ML IV PRN (09:00)
[2021-07-15] MEDS ORDERED: KLOR-CON PO PRN (09:00)
[2021-07-15] MEDS ORDERED: POTASSIUM CHL 60 MEQ/NS 0.45% 500 ML IV PRN (09:00)
[2021-07-15] MEDS ORDERED: K-DUR TAB 20 MEQ PO PRN (09:00)
[2021-07-15] MEDS ORDERED: K-RIDER 10 MEQ/NS 100 ML 10 MEQ/100 ML BAG IV PRN (09:00)
[2021-07-15] MEDS ORDERED: MICRO K EXTEN CAP 10 MEQ PO PRN (09:00)
[2021-07-15] MEDS ORDERED: ROBITUSSIN DM ONE (10:51)
[2021-07-15] MEDS ORDERED: FORTAZ or TAZICEF VIAL INJ ONE (10:51)
[2021-07-15] MEDS ORDERED: VIBRAMYCIN IV ONE (10:51)
[2021-07-15] MEDS ORDERED: NS 100 ML IV + SPIKE MINIBAG* 200 ML IV ONE (10:52)
[2021-07-15] MEDS ORDERED: VSL#3 ONE (10:52)
[2021-07-15] MEDS: VIBRAMYCIN 100 MG in NS 100 ML IV + SPIKE MINIBAG* 100 ML IV SCH ×2 (11:00→20:18)
[2021-07-15] MEDS: VSL#3 PO SCH (11:00)
[2021-07-15] MEDS: FORTAZ or TAZICEF VIAL INJ 1 G in NS 100 ML IV + SPIKE MINIBAG* 100 ML IV SCH ×3 (11:01→21:43)
[2021-07-15] MEDS: ROBITUSSIN DM PO SCH ×4 (11:01→20:17)
[2021-07-15] MEDS: XOPENEX 1.25 MG/3 ML NEBULE NEB SCH ×2 (12:00→16:40)
[2021-07-15 12:05] LABS: BILIRUBIN,URINE NEGATIVE (NEGATIVE); BLOOD/HEMOGLOBIN,URINE NEGATIVE (NEGATIVE); GLUCOSE, URINE NEGATIVE (NEGATIVE); KETONES,URINE NEGATIVE (NEGATIVE); LEUKOCYTE ESTERASE ,URINE 2+ (NEGATIVE); NITRITES,URINE NEGATIVE (NEGATIVE); PROTEIN,URINE 1+ (NEGATIVE); UROBILINOGEN,URINE NORMAL (NORMAL)
[2021-07-15 12:09] LABS: APPEARANCE,URINE CLEAR (CLEAR); COLOR,URINE YELLOW (YELLOW)
[2021-07-15 12:22] LABS: AMORPHOUS SEDIMENT,UR TRACE /HPF (NEGATIVE); BACTERIA,URINE TRACE /HPF (NEGATIVE); RBC,URINE 0-2 /HPF (0-3); SQUAMOUS EPITHELIAL CELL,UR MODERATE /HPF (NEGATIVE)
--- NOTE | 2021-07-15 18:34 | DR.H&P ---
H&P History & Physical for Day of: H&P Date: 07/14/21 Chief Complaint Chief Complaint: AMS Allergies Allergies Allergy/AdvReac Type Severity Reaction Status Date / Time codeine Allergy Verified 06/17/17 09:14 promethazine [From Phenergan] Allergy Verified 06/17/17 09:14 Sulfa (Sulfonamide Allergy Verified 06/17/17 09:14 Antibiotics) [SULFA] History of Present Illness History of Present Illness: 65 yo wf who was brought to ED for AMS. Patients brother and sister reports neighbor called them stating that the patient was not acting correctly. It was reported that the patient was in a vehicle trying to drive but she does not drive because of a history of seizures. Work up revealed rhabdomyolysis and infiltrate on CXR, and dehydration. Past Medical History Past Medical History: Angina, Anxiety, Asthma, COPD, Depression, Dyslipidemia, GERD, Hypertension and Seizures Additional Medical History: Chronic Back Pain, Bipolar disorder, Muscle Weakness, Previous blood transfusion Past Surgical History Surgical History: , Hysterectomy and Joint Replacement Additional Surgical History: Deviated Septum Repair Family History Family Medical History: Cancer, Coronary Artery Disease and Hypertension Social History Does patient currently use any type of tobacco product: Yes Have you used tobacco products in the last 12 months: Yes Type of Tobacco Use: Cigarettes How many years tobacco product used: 20 Packs per day or dips/chews per day: 1 Alcohol Use: None Drug Use: None Medications Home Medications: codeine Allergy (Verified 06/17/17 09:14) promethazine [From Phenergan] Allergy (Verified 06/17/17 09:14) Sulfa (Sulfonamide Antibiotics) [SULFA] Allergy (Verified 06/17/17 09:14) CONTINUE taking the following medications spironolactone 25 mg PO DAILY 07/14/21 [History] amitriptyline 50 mg PO HS 07/15/21 [History] [id number] [Trelegy Ellipta] 1 inh INHALATION BID 07/15/21 [History] Labs Result Diagrams: 07/15/21 04:10 07/15/21 04:10 Labs: 07/15/21 15:32 Sputum - Expectorated Sputum - Final Laboratory WBC 10.3 X10^3/uL (3.6-10.0) H 07/15/21 04:10 RBC 4.09 X10^6/uL (3.5-5.4) 07/15/21 04:10 Hgb 11.0 g/dL (12.0-16.0) L 07/15/21 04:10 Hct 33.7 % (36.0-47.0) L 07/15/21 04:10 MCV 82.2 fL (80.0-100.0) 07/15/21 04:10 MCH 26.8 pg (27.0-34.0) L 07/15/21 04:10 MCHC 32.6 g/dL (33.0-35.0) L 07/15/21 04:10 RDW 18.2 % (11.6-16.5) H 07/15/21 04:10 Plt Count 423 X10^3/uL (150.0-450.0) 07/15/21 04:10 MPV 7.8 fL (7.4-11.0) 07/15/21 04:10 Neut % (Auto) 73.0 % (42.0-75.0) 07/15/21 04:10 Lymph % (Auto) 12.9 % (21.0-51.0) L 07/15/21 04:10 [place] % (Auto) 10.6 % (0.0-13.0) 07/15/21 04:10 Eos % (Auto) 2.8 % (0.9-2.9) 07/15/21 04:10 Baso % (Auto) 0.7 % (0.2-1.0) 07/15/21 04:10 Neut # (Auto) 7.5 x10^3/uL (2.2-4.8) H 07/15/21 04:10 Lymph # (Auto) 1.3 X10^3/uL (1.3-2.9) 07/15/21 04:10 [place] # (Auto) 1.1 x10^3/uL (0.3-0.8) H 07/15/21 04:10 Eos # (Auto) 0.3 x10^3/uL (0.0-0.2) H 07/15/21 04:10 Baso # (Auto) 0.1 X10^3/uL (0.0-0.1) 07/15/21 04:10 Absolute Nucleated RBC 0.0 /100WBC 07/15/21 04:10 PT 14.2 SECONDS (11.8-14.3) 07/15/21 04:10 INR Target Range - 07/15/21 04:10 INR 1.15 (0.8-1.3) 07/15/21 04:10 APTT 41.7 SECONDS (22.9-36.5) H 07/15/21 04:10 PTT Comment - 07/15/21 04:10 Sodium 143 mmol/L (136-145) 07/15/21 04:10 Corrected Sodium 143 mmol/L (136-145) 07/15/21 04:10 Potassium 3.2 mmol/L (3.5-5.1) L 07/15/21 04:10 Chloride 109 mmol/L (98-107) H 07/15/21 04:10 Carbon Dioxide 23.7 mmol/L (21-32) 07/15/21 04:10 BUN 18 mg/dL (7-18) 07/15/21 04:10 Creatinine 1.50 mg/dL (0.55-1.02) H 07/15/21 04:10 Est GFR (MDRD) Af Amer 45 (>60) L 07/15/21 04:10 Est GFR (MDRD) Non-Af 37 (>60) L 07/15/21 04:10 Glucose 119 mg/dL (65-99) H 07/15/21 04:10 Calcium 8.3 mg/dL (8.5-10.1) L 07/15/21 04:10 Corrected Calcium 9.3 mg/dL (8.5-10.1) 07/15/21 04:10 Magnesium 2.4 mg/dL (1.7-2.9) 07/15/21 04:10 Total Bilirubin 0.10 mg/dL (0.2-1.0) L 07/15/21 04:10 AST 31 Units/L (15-37) 07/15/21 04:10 ALT 17 Units/L (12-78) 07/15/21 04:10 Alkaline Phosphatase 84 Units/L (46-116) 07/15/21 04:10 Creatine Kinase 308 Units/L (26-192) H 07/15/21 04:10 CK-MB (CK-2) 4.1 ng/mL (0-4.0) H 07/15/21 04:10 CK/CKMB % Calc 1.3 % (<4) 07/15/21 04:10 Troponin I < 0.02 ng/mL (0-1.5) 07/15/21 04:10 Total Protein 6.3 g/dL (6.4-8.2) L 07/15/21 04:10 Albumin 2.7 g/dL (3.4-5.0) L 07/15/21 04:10 Globulin 3.6 g/dL (2.5-4.5) 07/15/21 04:10 Albumin/Globulin Ratio 0.8 Ratio (1.1-2.1) L 07/15/21 04:10 Specimen Type Clean catch urine 07/15/21 11:45 Urine Color Yellow (YELLOW) 07/15/21 11:45 Urine Appearance Clear (CLEAR) 07/15/21 11:45 Urine pH 6.0 (5.0 - 8.0) 07/15/21 11:45 Ur Specific [place] 1.015 (1.000-1.030) 07/15/21 11:45 Urine Protein 1+ (NEGATIVE) 07/15/21 11:45 Urine Glucose (UA) Negative (NEGATIVE) 07/15/21 11:45 Urine Ketones Negative (NEGATIVE) 07/15/21 11:45 Urine Occult Blood Negative (NEGATIVE) 07/15/21 11:45 Urine Nitrite Negative (NEGATIVE) 07/15/21 11:45 Urine Bilirubin Negative (NEGATIVE) 07/15/21 11:45 Urine Urobilinogen Normal (NORMAL) 07/15/21 11:45 Ur Leukocyte Esterase 2+ (NEGATIVE) 07/15/21 11:45 Urine RBC 0-2 /HPF (0-3) 07/15/21 11:45 Urine WBC 3-5 /HPF (0-5) 07/15/21 11:45 Ur Squamous Epith Cells Moderate /HPF (NEGATIVE) 07/15/21 11:45 Amorphous Sediment Trace /HPF (NEGATIVE) 07/15/21 11:45 Urine Bacteria Trace /HPF (NEGATIVE) 07/15/21 11:45 Ur Culture Indicated? No/not indicated 07/15/21 11:45 Urine Opiates Screen Negative (NEG=<300) 07/15/21 11:45 Urine Methadone Screen Negative (NEG=<300) 07/15/21 11:45 Ur Barbiturates Screen Negative (NEG=<200) 07/15/21 11:45 Ur Phencyclidine Scrn Negative (NEG=<25) 07/15/21 11:45 Ur Amphetamines Screen Negative (NEG=<1000) 07/15/21 11:45 U Benzodiazepines Scrn Positive (NEG=<200) A 07/15/21 11:45 Urine Cocaine Screen Negative (NEG=<300) 07/15/21 11:45 U Marijuana (THC) Screen Positive (NEG=<50) A 07/15/21 11:45 SARS-CoV-2 (PCR) Negative (NEGATIVE) 07/14/21 21:58 Influenza Type A (PCR) Negative (NEGATIVE) 07/14/21 21:58 Influenza Type B (PCR) Negative (NEGATIVE) 07/14/21 21:58 RSV (PCR) Negative (NEGATIVE) 07/14/21 21:58 Review of Systems Constitutional: Weakness Eyes: No Symptoms Reported ENT: No Symptoms Reported Respiratory: No Symptoms Reported Cardiovascular: No Symptoms Reported Gastrointestinal: No Symptoms Reported Genitourinary: No Symptoms Reported Musculoskeletal: No Symptoms Reported Skin: No Symptoms Reported Neurological: Weakness and Confusion Physical Exam Vital Signs: Temperature 98.6 F Pulse Rate [Brachial] 82 Pulse Rate 78 Respiratory Rate 20 Blood Pressure [Right Arm] 146/65 Blood Pressure [Left Arm] 145/64 Blood Pressure 104/56 O2 Sat by Pulse Oximetry 91 Oriented: Time, Person and Place Eyes: Normal Ear: Normal Nose: Normal Throat: Normal Respiratory: Clear Throughout Cardiovascular: Normal : Normal Auscultation: Bowel Sounds: Normal Palpation: Normal Tenderness: Normal and Rebound Skin: Normal Musculoskeletal: Normal Psychiatric: Normal Mood Description: Calm Affect: Normal Speech Pattern: Clear and Appropriate Assessment/Plan (1) Essential hypertension: Status: Chronic Plan: Monitor BP. (2) Altered mental status: Qualifiers: Altered mental status type: somnolence Qualified Code(s): R40.0 - Somnolence Status: Acute Plan: Monitor for now. (3) Dehydration: Status: Acute Plan: IVF (4) Rhabdomyolysis: Status: Acute Plan: IVF hydration. (5) Pneumonia: Status: Acute Plan: Pneumonia protocol with Fortaz and Vibramycin.
--- NOTE | 2021-07-15 18:45 | PCM.PROG ---
Progress Note Progress Note for Day of Date of Exam: 07/15/21 Subjective Subjective: Patient is alert and is not confused this am. She does not know what happened to cause her confusion yesterday. Past Medical Family Social History Past Med/Fam/Surg Hx: No changes since H&P Allergies: Allergies codeine Allergy (Verified 06/17/17 09:14) promethazine [From Phenergan] Allergy (Verified 06/17/17 09:14) Sulfa (Sulfonamide Antibiotics) [SULFA] Allergy (Verified 06/17/17 09:14) Review of Systems ROS: No change since H&P Vital Signs and I&O's Vital Signs: Temperature 98.6 F Pulse Rate [Brachial] 82 Pulse Rate 78 Respiratory Rate 20 Blood Pressure [Right Arm] 146/65 Blood Pressure [Left Arm] 145/64 Blood Pressure 104/56 O2 Sat by Pulse Oximetry 91 Intake and Output: Intake & Output 07/13/21 07/14/21 07/15/21 07/16/21 11:59 11:59 11:59 11:59 Intake Total 757 / 757 1905 / 1905 Balance 757 / 757 190 / 190 Physical Exam Oriented: Time, Person and Place Eyes: Normal Ear: Normal Nose: Normal Throat: Normal Cardiovascular: Normal : Normal Auscultation: Bowel Sounds: Normal Tenderness: Normal and Rebound Skin: Normal Musculoskeletal: Normal Psychiatric: Normal Mood Description: Calm Affect: Normal Speech Pattern: Clear and Appropriate Laboratory and Diagnostics Result Diagrams: 07/15/21 04:10 07/15/21 04:10 Labs: 07/15/21 15:32 Sputum - Expectorated Sputum - Final Laboratory WBC 10.3 X10^3/uL (3.6-10.0) H 07/15/21 04:10 RBC 4.09 X10^6/uL (3.5-5.4) 07/15/21 04:10 Hgb 11.0 g/dL (12.0-16.0) L 07/15/21 04:10 Hct 33.7 % (36.0-47.0) L 07/15/21 04:10 MCV 82.2 fL (80.0-100.0) 07/15/21 04:10 MCH 26.8 pg (27.0-34.0) L 07/15/21 04:10 MCHC 32.6 g/dL (33.0-35.0) L 07/15/21 04:10 RDW 18.2 % (11.6-16.5) H 07/15/21 04:10 Plt Count 423 X10^3/uL (150.0-450.0) 07/15/21 04:10 MPV 7.8 fL (7.4-11.0) 07/15/21 04:10 Neut % (Auto) 73.0 % (42.0-75.0) 07/15/21 04:10 Lymph % (Auto) 12.9 % (21.0-51.0) L 07/15/21 04:10 [place] % (Auto) 10.6 % (0.0-13.0) 07/15/21 04:10 Eos % (Auto) 2.8 % (0.9-2.9) 07/15/21 04:10 Baso % (Auto) 0.7 % (0.2-1.0) 07/15/21 04:10 Neut # (Auto) 7.5 x10^3/uL (2.2-4.8) H 07/15/21 04:10 Lymph # (Auto) 1.3 X10^3/uL (1.3-2.9) 07/15/21 04:10 [place] # (Auto) 1.1 x10^3/uL (0.3-0.8) H 07/15/21 04:10 Eos # (Auto) 0.3 x10^3/uL (0.0-0.2) H 07/15/21 04:10 Baso # (Auto) 0.1 X10^3/uL (0.0-0.1) 07/15/21 04:10 Absolute Nucleated RBC 0.0 /100WBC 07/15/21 04:10 PT 14.2 SECONDS (11.8-14.3) 07/15/21 04:10 INR Target Range - 07/15/21 04:10 INR 1.15 (0.8-1.3) 07/15/21 04:10 APTT 41.7 SECONDS (22.9-36.5) H 07/15/21 04:10 PTT Comment - 07/15/21 04:10 Sodium 143 mmol/L (136-145) 07/15/21 04:10 Corrected Sodium 143 mmol/L (136-145) 07/15/21 04:10 Potassium 3.2 mmol/L (3.5-5.1) L 07/15/21 04:10 Chloride 109 mmol/L (98-107) H 07/15/21 04:10 Carbon Dioxide 23.7 mmol/L (21-32) 07/15/21 04:10 BUN 18 mg/dL (7-18) 07/15/21 04:10 Creatinine 1.50 mg/dL (0.55-1.02) H 07/15/21 04:10 Est GFR (MDRD) Af Amer 45 (>60) L 07/15/21 04:10 Est GFR (MDRD) Non-Af 37 (>60) L 07/15/21 04:10 Glucose 119 mg/dL (65-99) H 07/15/21 04:10 Calcium 8.3 mg/dL (8.5-10.1) L 07/15/21 04:10 Corrected Calcium 9.3 mg/dL (8.5-10.1) 07/15/21 04:10 Magnesium 2.4 mg/dL (1.7-2.9) 07/15/21 04:10 Total Bilirubin 0.10 mg/dL (0.2-1.0) L 07/15/21 04:10 AST 31 Units/L (15-37) 07/15/21 04:10 ALT 17 Units/L (12-78) 07/15/21 04:10 Alkaline Phosphatase 84 Units/L (46-116) 07/15/21 04:10 Creatine Kinase 308 Units/L (26-192) H 07/15/21 04:10 CK-MB (CK-2) 4.1 ng/mL (0-4.0) H 07/15/21 04:10 CK/CKMB % Calc 1.3 % (<4) 07/15/21 04:10 Troponin I < 0.02 ng/mL (0-1.5) 07/15/21 04:10 Total Protein 6.3 g/dL (6.4-8.2) L 07/15/21 04:10 Albumin 2.7 g/dL (3.4-5.0) L 07/15/21 04:10 Globulin 3.6 g/dL (2.5-4.5) 07/15/21 04:10 Albumin/Globulin Ratio 0.8 Ratio (1.1-2.1) L 07/15/21 04:10 Specimen Type Clean catch urine 07/15/21 11:45 Urine Color Yellow (YELLOW) 07/15/21 11:45 Urine Appearance Clear (CLEAR) 07/15/21 11:45 Urine pH 6.0 (5.0 - 8.0) 07/15/21 11:45 Ur Specific [place] 1.015 (1.000-1.030) 07/15/21 11:45 Urine Protein 1+ (NEGATIVE) 07/15/21 11:45 Urine Glucose (UA) Negative (NEGATIVE) 07/15/21 11:45 Urine Ketones Negative (NEGATIVE) 07/15/21 11:45 Urine Occult Blood Negative (NEGATIVE) 07/15/21 11:45 Urine Nitrite Negative (NEGATIVE) 07/15/21 11:45 Urine Bilirubin Negative (NEGATIVE) 07/15/21 11:45 Urine Urobilinogen Normal (NORMAL) 07/15/21 11:45 Ur Leukocyte Esterase 2+ (NEGATIVE) 07/15/21 11:45 Urine RBC 0-2 /HPF (0-3) 07/15/21 11:45 Urine WBC 3-5 /HPF (0-5) 07/15/21 11:45 Ur Squamous Epith Cells Moderate /HPF (NEGATIVE) 07/15/21 11:45 Amorphous Sediment Trace /HPF (NEGATIVE) 07/15/21 11:45 Urine Bacteria Trace /HPF (NEGATIVE) 07/15/21 11:45 Ur Culture Indicated? No/not indicated 07/15/21 11:45 Urine Opiates Screen Negative (NEG=<300) 07/15/21 11:45 Urine Methadone Screen Negative (NEG=<300) 07/15/21 11:45 Ur Barbiturates Screen Negative (NEG=<200) 07/15/21 11:45 Ur Phencyclidine Scrn Negative (NEG=<25) 07/15/21 11:45 Ur Amphetamines Screen Negative (NEG=<1000) 07/15/21 11:45 U Benzodiazepines Scrn Positive (NEG=<200) A 07/15/21 11:45 Urine Cocaine Screen Negative (NEG=<300) 07/15/21 11:45 U Marijuana (THC) Screen Positive (NEG=<50) A 07/15/21 11:45 SARS-CoV-2 (PCR) Negative (NEGATIVE) 07/14/21 21:58 Influenza Type A (PCR) Negative (NEGATIVE) 07/14/21 21:58 Influenza Type B (PCR) Negative (NEGATIVE) 07/14/21 21:58 RSV (PCR) Negative (NEGATIVE) 07/14/21 21:58 Radiology Reviewed: Yes Plan (1) Essential hypertension: Status: Chronic Plan: Monitor BP. (2) Altered mental status: Status: Resolved Qualifiers: Altered mental status type: somnolence Qualified Code(s): R40.0 - Somnolence Plan: Monitor for now. (3) Dehydration: Status: Acute Narrative Support Text: Improved. Plan: IVF (4) Rhabdomyolysis: Status: Acute Plan: IVF hydration. (5) Pneumonia: Status: Acute Plan: Pneumonia protocol with Fortaz and Vibramycin. CXR in am.
[2021-07-15] MEDS: PROTONIX TAB 40 MG PO SCH (20:30)
[2021-07-15] MEDS: ELAVIL PO SCH (20:30)
[2021-07-15] MEDS: COREG TAB 3.125 MG PO SCH (20:30)
[2021-07-15] MEDS ORDERED: ROCEPHIN 1 GRAM IV PREMIX 1 G/50 ML IV.SOLN. IV SCH (21:00)
[2021-07-15] MEDS: NEURONTIN CAP 300 MG PO SCH (21:41)
[2021-07-15] MEDS: VISTARIL PO PRN (21:46)
[2021-07-16] MEDS: XOPENEX 1.25 MG/3 ML NEBULE NEB SCH ×4 (00:05→18:05)
[2021-07-16 05:10] LABS: BASOPHILS # (AUTO) 0.1 X10^3/uL (0.0-0.1); BASOPHILS % (AUTO) 0.8 % (0.2-1.0); EOSINOPHILS # (AUTO) 0.5 x10^3/uL (0.0-0.2); EOSINOPHILS % (AUTO) 4.5 % (0.9-2.9); HEMOGLOBIN 11.5 g/dL (12.0-16.0); LYMPHOCYTES # (AUTO) 1.4 X10^3/uL (1.3-2.9); LYMPHOCYTES % (AUTO) 12.4 % (21.0-51.0); MEAN CORPUSCULAR HEMOGLOBIN 26.3 pg (27.0-34.0); MEAN CORPUSCULAR HGB CONC 31.9 g/dL (33.0-35.0); MEAN CORPUSCULAR VOLUME 82.4 fL (80.0-100.0); MONOCYTES # (AUTO) 0.9 x10^3/uL (0.3-0.8); MONOCYTES % (AUTO) 8.3 % (0.0-13.0); NEUTROPHILS # (AUTO) 8.2 x10^3/uL (2.2-4.8); PLATELET COUNT 458 X10^3/uL (150.0-450.0); RED BLOOD COUNT 4.37 X10^6/uL (3.5-5.4); RED CELL DISTRIBUTION WIDTH 17.3 % (11.6-16.5)
[2021-07-16 05:28] LABS: ALANINE AMINOTRANSFERASE 18 Units/L (12-78); ALBUMIN 2.8 g/dL (3.4-5.0); ALKALINE PHOSPHATASE 101 Units/L (46-116); ASPARTATE AMINO TRANSFERASE 25 Units/L (15-37); BLOOD UREA NITROGEN 8 mg/dL (7-18); CALCIUM 8.2 mg/dL (8.5-10.1); CARBON DIOXIDE 22.6 mmol/L (21-32); CHLORIDE 111 mmol/L (98-107); COR CA(FOR HYPOALB) 9.2 mg/dL (8.5-10.1); CREATININE 1.22 mg/dL (0.55-1.02); SODIUM 145 mmol/L (136-145); TOTAL PROTEIN 6.6 g/dL (6.4-8.2); eGFR NON BLACK RACES 47 (>60)
--- NOTE | 2021-07-16 05:28 | RAD ---
HISTORYPNEUMONIA HX: CAD, HTN, ASTHMA, COPD SX: HYSTERECTOMYSTUDYCHEST, 1 [id number]/12/2021FINDINGSThe trachea is midline. The cardiac silhouette is unremarkable. Mild patchy right basilar opacity. The remainder lungs are clear. Pulmonary vasculature within normal limits. The bony thorax is unremarkable.IMPRESSIONMild right basilar patchy opacity unchanged.Electronically signed by: Lio Brooks (Jul 16, 2021 05:26:47)
[2021-07-16] MEDS: FORTAZ or TAZICEF VIAL INJ 1 G in NS 100 ML IV + SPIKE MINIBAG* 100 ML IV SCH ×3 (05:34→21:24)
[2021-07-16] MEDS: NEURONTIN CAP 300 MG PO SCH ×3 (05:35→21:24)
[2021-07-16] MEDS: NS 1,000 ML IV 1,000 ML IV SCH ×2 (05:39→16:17)
[2021-07-16] MEDS: PULMICORT NEB TX 0.5 MG NEB SCH ×2 (09:15→21:09)
[2021-07-16] MEDS: NORVASC TAB 10 MG PO SCH (09:47)
[2021-07-16] MEDS: VIBRAMYCIN 100 MG in NS 100 ML IV + SPIKE MINIBAG* 100 ML IV SCH ×2 (09:47→20:13)
[2021-07-16] MEDS: PROTONIX TAB 40 MG PO SCH ×2 (09:48→20:13)
[2021-07-16] MEDS: EFFEXOR XR 75 MG CAP 24-HR PO SCH (09:48)
[2021-07-16] MEDS: VSL#3 PO SCH (09:48)
[2021-07-16] MEDS: COREG TAB 3.125 MG PO SCH ×2 (09:48→20:12)
[2021-07-16] MEDS: ROBITUSSIN DM PO SCH ×4 (09:48→20:13)
[2021-07-16] MEDS: MICRO K EXTEN CAP 10 MEQ PO SCH (09:49)
[2021-07-16] MEDS: PLAVIX PO SCH (09:49)
[2021-07-16] MEDS: DIFLUCAN PO SCH (10:00)
[2021-07-16] MEDS ORDERED: SOLU-Medrol 125 MG VIAL IVP ONE (11:19)
[2021-07-16] MEDS ORDERED: SOLU-Medrol 125 MG VIAL ONE (11:26)
--- NOTE | 2021-07-16 15:32 | PCM.PROG ---
Progress Note Progress Note for Day of Date of Exam: 07/16/21 Subjective Subjective: Patient is alert and feels better this am. She is asking to go home. She is still mildly dehydrated and has a patchy infiltrate on CXR she is being treated for. I told her it would be better if she stayed for now. She agrees. Past Medical Family Social History Past Med/Fam/Surg Hx: No changes since H&P Allergies: Allergies codeine Allergy (Verified 06/17/17 09:14) promethazine [From Phenergan] Allergy (Verified 06/17/17 09:14) Sulfa (Sulfonamide Antibiotics) [SULFA] Allergy (Verified 06/17/17 09:14) Review of Systems ROS: No change since H&P Vital Signs and I&O's Vital Signs: Temperature 98.2 F Pulse Rate [Brachial] 94 Pulse Rate 85 Respiratory Rate 22 Blood Pressure [Right Arm] 144/81 Blood Pressure [Left Arm] 145/64 Blood Pressure 104/56 O2 Sat by Pulse Oximetry 93 Intake and Output: Intake & Output 07/14/21 07/15/21 07/16/21 07/17/21 11:59 11:59 11:59 11:59 Intake Total 757 / 757 4261 / 4261 Balance 757 / 757 4261 / 4261 Physical Exam Oriented: Time, Person and Place Eyes: Normal Ear: Normal Nose: Normal Throat: Normal Respiratory: Rhonchi Cardiovascular: Normal : Normal Auscultation: Bowel Sounds: Normal Tenderness: Normal and Rebound Skin: Normal Musculoskeletal: Normal Psychiatric: Normal Mood Description: Calm Affect: Normal Speech Pattern: Clear and Appropriate Laboratory and Diagnostics Result Diagrams: 07/16/21 04:00 07/16/21 04:00 Labs: 07/14/21 18:55 Blood Blood Culture - Preliminary 07/14/21 18:48 Blood Blood Culture - Preliminary 07/15/21 15:32 Sputum - Expectorated Sputum Sputum Culture - Preliminary 07/15/21 15:32 Sputum - Expectorated Sputum - Final Laboratory WBC 11.0 X10^3/uL (3.6-10.0) H 07/16/21 04:00 RBC 4.37 X10^6/uL (3.5-5.4) 07/16/21 04:00 Hgb 11.5 g/dL (12.0-16.0) L 07/16/21 04:00 Hct 36.0 % (36.0-47.0) 07/16/21 04:00 MCV 82.4 fL (80.0-100.0) 07/16/21 04:00 MCH 26.3 pg (27.0-34.0) L 07/16/21 04:00 MCHC 31.9 g/dL (33.0-35.0) L 07/16/21 04:00 RDW 17.3 % (11.6-16.5) H 07/16/21 04:00 Plt Count 458 X10^3/uL (150.0-450.0) H 07/16/21 04:00 MPV 8.0 fL (7.4-11.0) 07/16/21 04:00 Neut % (Auto) 74.0 % (42.0-75.0) 07/16/21 04:00 Lymph % (Auto) 12.4 % (21.0-51.0) L 07/16/21 04:00 [place] % (Auto) 8.3 % (0.0-13.0) 07/16/21 04:00 Eos % (Auto) 4.5 % (0.9-2.9) H 07/16/21 04:00 Baso % (Auto) 0.8 % (0.2-1.0) 07/16/21 04:00 Neut # (Auto) 8.2 x10^3/uL (2.2-4.8) H 07/16/21 04:00 Lymph # (Auto) 1.4 X10^3/uL (1.3-2.9) 07/16/21 04:00 [place] # (Auto) 0.9 x10^3/uL (0.3-0.8) H 07/16/21 04:00 Eos # (Auto) 0.5 x10^3/uL (0.0-0.2) H 07/16/21 04:00 Baso # (Auto) 0.1 X10^3/uL (0.0-0.1) 07/16/21 04:00 Absolute Nucleated RBC 0.1 /100WBC 07/16/21 04:00 PT 14.2 SECONDS (11.8-14.3) 07/15/21 04:10 INR Target Range - 07/15/21 04:10 INR 1.15 (0.8-1.3) 07/15/21 04:10 APTT 41.7 SECONDS (22.9-36.5) H 07/15/21 04:10 PTT Comment - 07/15/21 04:10 Sodium 145 mmol/L (136-145) 07/16/21 04:00 Corrected Sodium TNP 07/16/21 04:00 Potassium 3.9 mmol/L (3.5-5.1) 07/16/21 04:00 Chloride 111 mmol/L (98-107) H 07/16/21 04:00 Carbon Dioxide 22.6 mmol/L (21-32) 07/16/21 04:00 BUN 8 mg/dL (7-18) 07/16/21 04:00 Creatinine 1.22 mg/dL (0.55-1.02) H 07/16/21 04:00 Est GFR (MDRD) Af Amer 57 (>60) L 07/16/21 04:00 Est GFR (MDRD) Non-Af 47 (>60) L 07/16/21 04:00 Glucose 84 mg/dL (65-99) 07/16/21 04:00 Calcium 8.2 mg/dL (8.5-10.1) L 07/16/21 04:00 Corrected Calcium 9.2 mg/dL (8.5-10.1) 07/16/21 04:00 Magnesium 2.4 mg/dL (1.7-2.9) 07/15/21 04:10 Total Bilirubin 0.20 mg/dL (0.2-1.0) 07/16/21 04:00 AST 25 Units/L (15-37) 07/16/21 04:00 ALT 18 Units/L (12-78) 07/16/21 04:00 Alkaline Phosphatase 101 Units/L (46-116) 07/16/21 04:00 Creatine Kinase 308 Units/L (26-192) H 07/15/21 04:10 CK-MB (CK-2) 4.1 ng/mL (0-4.0) H 07/15/21 04:10 CK/CKMB % Calc 1.3 % (<4) 07/15/21 04:10 Troponin I < 0.02 ng/mL (0-1.5) 07/15/21 04:10 Total Protein 6.6 g/dL (6.4-8.2) 07/16/21 04:00 Albumin 2.8 g/dL (3.4-5.0) L 07/16/21 04:00 Globulin 3.8 g/dL (2.5-4.5) 07/16/21 04:00 Albumin/Globulin Ratio 0.7 Ratio (1.1-2.1) L 07/16/21 04:00 Specimen Type Clean catch urine 07/15/21 11:45 Urine Color Yellow (YELLOW) 07/15/21 11:45 Urine Appearance Clear (CLEAR) 07/15/21 11:45 Urine pH 6.0 (5.0 - 8.0) 07/15/21 11:45 Ur Specific [place] 1.015 (1.000-1.030) 07/15/21 11:45 Urine Protein 1+ (NEGATIVE) 07/15/21 11:45 Urine Glucose (UA) Negative (NEGATIVE) 07/15/21 11:45 Urine Ketones Negative (NEGATIVE) 07/15/21 11:45 Urine Occult Blood Negative (NEGATIVE) 07/15/21 11:45 Urine Nitrite Negative (NEGATIVE) 07/15/21 11:45 Urine Bilirubin Negative (NEGATIVE) 07/15/21 11:45 Urine Urobilinogen Normal (NORMAL) 07/15/21 11:45 Ur Leukocyte Esterase 2+ (NEGATIVE) 07/15/21 11:45 Urine RBC 0-2 /HPF (0-3) 07/15/21 11:45 Urine WBC 3-5 /HPF (0-5) 07/15/21 11:45 Ur Squamous Epith Cells Moderate /HPF (NEGATIVE) 07/15/21 11:45 Amorphous Sediment Trace /HPF (NEGATIVE) 07/15/21 11:45 Urine Bacteria Trace /HPF (NEGATIVE) 07/15/21 11:45 Ur Culture Indicated? No/not indicated 07/15/21 11:45 Urine Opiates Screen Negative (NEG=<300) 07/15/21 11:45 Urine Methadone Screen Negative (NEG=<300) 07/15/21 11:45 Ur Barbiturates Screen Negative (NEG=<200) 07/15/21 11:45 Ur Phencyclidine Scrn Negative (NEG=<25) 07/15/21 11:45 Ur Amphetamines Screen Negative (NEG=<1000) 07/15/21 11:45 U Benzodiazepines Scrn Positive (NEG=<200) A 07/15/21 11:45 Urine Cocaine Screen Negative (NEG=<300) 07/15/21 11:45 U Marijuana (THC) Screen Positive (NEG=<50) A 07/15/21 11:45 SARS-CoV-2 (PCR) Negative (NEGATIVE) 07/14/21 21:58 Influenza Type A (PCR) Negative (NEGATIVE) 07/14/21 21:58 Influenza Type B (PCR) Negative (NEGATIVE) 07/14/21 21:58 RSV (PCR) Negative (NEGATIVE) 07/14/21 21:58 Radiology Reviewed: Yes Plan (1) Essential hypertension: Status: Chronic Narrative Support Text: Stable. Plan: Monitor BP. (2) Altered mental status: Status: Resolved Qualifiers: Altered mental status type: somnolence Qualified Code(s): R40.0 - Somnolence Plan: Monitor for now. (3) Dehydration: Status: Acute Narrative Support Text: Continues to improve but is not resolved at this time. Plan: IVF hydration. (4) Rhabdomyolysis: Status: Acute Narrative Support Text: Rhabdomyolysis is still present. Plan: Continue IVF hydration. (5) Pneumonia: Status: Acute Plan: Pneumonia protocol with Fortaz and Vibramycin. CXR in am.
[2021-07-16] MEDS: ELAVIL PO SCH (20:12)
[2021-07-16] MEDS: VISTARIL PO PRN (20:13)
[2021-07-16] MEDS: SOLU-Medrol 40 MG VIAL IVP SCH (21:26)
[2021-07-17] MEDS: XOPENEX 1.25 MG/3 ML NEBULE NEB SCH ×3 (00:35→11:31)
[2021-07-17] MEDS: NS 1,000 ML IV 1,000 ML IV SCH (03:45)
[2021-07-17 04:53] LABS: BASOPHILS % (AUTO) 0.2 % (0.2-1.0); HEMATOCRIT 35.4 % (36.0-47.0); HEMOGLOBIN 11.6 g/dL (12.0-16.0); LYMPHOCYTES # (AUTO) 0.9 X10^3/uL (1.3-2.9); LYMPHOCYTES % (AUTO) 7.1 % (21.0-51.0); MEAN CORPUSCULAR HEMOGLOBIN 26.7 pg (27.0-34.0); MEAN CORPUSCULAR HGB CONC 32.7 g/dL (33.0-35.0); MEAN CORPUSCULAR VOLUME 81.7 fL (80.0-100.0); MONOCYTES # (AUTO) 0.2 x10^3/uL (0.3-0.8); MONOCYTES % (AUTO) 1.3 % (0.0-13.0); NEUTROPHILS # (AUTO) 11.2 x10^3/uL (2.2-4.8); NEUTROPHILS % (AUTO) 91.4 % (42.0-75.0); PLATELET COUNT 472 X10^3/uL (150.0-450.0); RED BLOOD COUNT 4.33 X10^6/uL (3.5-5.4); RED CELL DISTRIBUTION WIDTH 18.4 % (11.6-16.5); WHITE BLOOD COUNT 12.3 X10^3/uL (3.6-10.0)
[2021-07-17 05:14] LABS: ALANINE AMINOTRANSFERASE 16 Units/L (12-78); ALBUMIN 2.7 g/dL (3.4-5.0); ALKALINE PHOSPHATASE 92 Units/L (46-116); ASPARTATE AMINO TRANSFERASE 18 Units/L (15-37); BLOOD UREA NITROGEN 7 mg/dL (7-18); CALCIUM 8.6 mg/dL (8.5-10.1); CARBON DIOXIDE 23.1 mmol/L (21-32); CHLORIDE 111 mmol/L (98-107); COR CA(FOR HYPOALB) 9.6 mg/dL (8.5-10.1); COR NA(FOR HYPERGLY) 145 mmol/L (136-145); SODIUM 144 mmol/L (136-145); TOTAL PROTEIN 6.8 g/dL (6.4-8.2); eGFR NON BLACK RACES > 60 (>60)
[2021-07-17 05:16] LABS: PLATELET MORPHOLOGY COMMENT NORMAL (NORMAL)
[2021-07-17] MEDS: SOLU-Medrol 40 MG VIAL IVP SCH ×2 (05:24→13:19)
[2021-07-17] MEDS: NEURONTIN CAP 300 MG PO SCH ×2 (05:25→13:19)
[2021-07-17] MEDS: FORTAZ or TAZICEF VIAL INJ 1 G in NS 100 ML IV + SPIKE MINIBAG* 100 ML IV SCH ×2 (05:25→13:19)
--- NOTE | 2021-07-17 06:12 | RAD ---
HISTORYPATCHY INFILTRATES C/W PNEUMONIA HX: CAD, HTN, ASTHMA, COPD SX: HYSTERECTOMYSTUDYCHEST, 1 [id number]/2021FINDINGSThe trachea is midline. The cardiac silhouette is unremarkable. The lungs are clear without focal infiltrate or effusion. Pulmonary vasculature within normal limits. No pneumothorax. The bony thorax is unremarkable.IMPRESSIONNo acute cardiopulmonary findings .Electronically signed by: Lio Brooks (Jul 17, 2021 06:11:13)
[2021-07-17] MEDS: DIFLUCAN PO SCH (08:22)
[2021-07-17] MEDS: PLAVIX PO SCH (08:22)
[2021-07-17] MEDS: COREG TAB 3.125 MG PO SCH (08:22)
[2021-07-17] MEDS: ROBITUSSIN DM PO SCH ×2 (08:23→13:19)
[2021-07-17] MEDS: NORVASC TAB 10 MG PO SCH (08:23)
[2021-07-17] MEDS: VIBRAMYCIN 100 MG in NS 100 ML IV + SPIKE MINIBAG* 100 ML IV SCH (08:23)
[2021-07-17] MEDS: VSL#3 PO SCH (08:23)
[2021-07-17] MEDS: EFFEXOR XR 75 MG CAP 24-HR PO SCH (08:23)
[2021-07-17] MEDS: PROTONIX TAB 40 MG PO SCH (08:23)
[2021-07-17] MEDS: MICRO K EXTEN CAP 10 MEQ PO SCH (08:23)
[2021-07-17] MEDS ORDERED: LOVENOX INJ 40 MG SYR SC SCH (11:00)
[2021-07-17] MEDS: PULMICORT NEB TX 0.5 MG NEB SCH (11:30)
--- NOTE | 2021-07-17 15:11 | RAD ---
EXAM: BILATERAL HIP (AND PELVIS) X-RAY SERIESHISTORY: Pain.TECHNIQUE: 4 viewsCOMPARISON: None.FINDINGS:The patient is status post total left hip replacement. There is no prosthetic loosening, fracture, or dislocation seen. There is evidence for local bone demineralization around the acetabular and femoral prosthesis in keeping with stress shielding (of doubtful clinical significance); no associated fracture deformity is seen.The right hip is unremarkable. There is no acute bony fracture, or joint subluxation or dislocation seen. No focal bone erosion or sclerosis is seen.No soft tissue emphysema, radiodense soft tissue abnormality or foreign body is seen.IMPRESSION:1. Status post total left hip replacement, without prosthetic loosening or displacement.2. No acute bony fracture seen.3. No soft tissue emphysema, radiodense soft tissue abnormality or suspicious foreign body seen.Electronically signed by: Kolton Kumar (Jul 17, 2021 15:09:56)
[2021-07-17 15:58] VITALS: BP 127/59
--- NOTE | 2021-07-21 15:17 | W.DIS.FURT ---
Discharge Plan - Discharge Plan Condition: Stable - Orders to Discharge Patient Discharge Orders: Discharge (Routine); Ordered 07/17/21 Ordered By: Steph Keating
== END 2021-07-17 16:30 | disposition home or self-care (01) ==
LOC: MED/SURG 17:53 → ER 17:53 → MED/SURG 07-15 00:12
PROVIDERS: ADMIT Family Medicine; ATTEND Internal Medicine
DX: E86.0 Dehydration; G40.909 Epilepsy, unspecified, not intractable, without status epilepticus; I10 Essential (primary) hypertension; Z20.822 Contact with and (suspected) exposure to COVID-19; R26.81 Unsteadiness on feet; M62.81 Muscle weakness (generalized); J15.0 Pneumonia due to Klebsiella pneumoniae; F12.90 Cannabis use, unspecified, uncomplicated; Z96.642 Presence of left artificial hip joint; M25.552 Pain in left hip; D68.9 Coagulation defect, unspecified; R41.82 Altered mental status, unspecified; M62.82 Rhabdomyolysis; F31.9 Bipolar disorder, unspecified

== ENCOUNTER 2021-07-31 11:22 | Observation (INO) ==
[2021-07-31 11:26] VITALS: BMI 42.4
--- NOTE | 2021-07-31 12:23 | DR.GENAD ---
HPI Time Seen Time Seen by Provider: 07/31/21 12:23 PCP Primary Care Physician: RAH CASEY Complaint/Symptoms Chief Complaint:: PT. BEGAN FALLING ON SATURDAY. PT. HAS HAD MULTIPLE FALLS SINCE ONSET. PT. C/O WEAKNESS AND UNSTEADY GAIT. PT. DENIES PAIN. FAMILY REPORTS PT. HAS HAD SOME CONFUSION. COVID-19 Coronavirus risk:travel/contact w/high risk person: No Has patient experienced Coronavirus symptoms: No Source History Provided: Patient and Family Member Mode of Arrival Mode of Arrival: Wheelchair Timing Onset of Chief Complaint: 07/29/21 PMH PMH Past Medical History: Yes Past Medical History: Angina, Anxiety, Asthma, COPD, Depression, Dyslipidemia, GERD, Hypertension and Seizures Past Surgical History: Yes Surgical History: , Hysterectomy and Joint Replacement Family History History of Family Medical Conditions: Yes Family Medical History: Cancer, Coronary Artery Disease and Hypertension Social History Does patient currently use any type of tobacco product: No Have you used tobacco products in the last 12 months: No Type of Tobacco Use: None Does any household member use tobacco: No Alcohol Use: None Do you use any recreational Drugs:: No Lives With: Alone Lives Where: Home Travel Risk Coronavirus risk:travel/contact w/high risk person: No Has patient experienced Coronavirus symptoms: No Infectious screening In the last 2 months have you had wt loss of >10#?: NO Have you had fever, night sweats or hemotysis?: No Have you traveled outside the country in the last 6 months?: No Isolation: Standard ROS Review of Systems Constitutional: No Symptoms Reported and See HPI Eyes: No Symptoms Reported and See HPI ENTM: No Symptoms Reported and See HPI Respiratoy: No Symptoms Reported and See HPI Cardiovascular: No Symptoms Reported and See HPI Gastrointestinal/Abdominal: No Symptoms Reported and See HPI Genitourinary: No Symptoms Reported and See HPI Neurological: No Symptoms Reported and See HPI Musculoskeletal: No Symptoms Reported and See HPI Integumentary: No Symptoms Reported and See HPI Hematologic/Lymphatic: No Symptoms Reported and See HPI Endocrine: No Symptoms Reported and See HPI Psychiatric: No Symptoms Reported and See HPI All Other Systems: Reviewed and Negative PE Vital Signs Vitals: Temperature 98.2 F Pulse Rate 94 Respiratory Rate 22 Blood Pressure [Right Arm] 127/59 Blood Pressure 139/65 O2 Sat by Pulse Oximetry 96 General Limitations: No Limitations General Appearance: Alert and In No Apparent Distress Head Head Exam: Normal Inspection Eyes Eye exam: Normal Appearance ENT ENT Exam: Normal Exam External Ear Exam: Normal External Inspection TM/Canal Exam: Bilateral: Normal Nose Exam: Normal Nose Exam Mouth Exam: Normal Inspection Throat Exam: Normal Inspection Neck Neck Exam: Normal Inspection Chest Chest Inspection: Normal Inspection Respiratory Respiratory Exam: Normal Lung Sounds Bilat Respiratory Exam: Bilateral: Clear to Auscultation Cardiovascular Cardiovascular Exam: Regular Rate and Normal Rhythm Abdominal Exam Abdominal Exam: Normal Inspection, Normal Bowel Sounds and Soft Extremities Extremities Exam: Normal Inspection Back Back Exam: Normal Inspection Neurologic Neurological Exam: Alert and Oriented X3 Psychiatric Psychiatric Exam: Normal Affect and Normal Mood Skin Skin Exam: Warm, Dry, Intact and Normal Color ROR Labs Reviewed Result Diagrams: 08/02/21 05:35 08/02/21 05:35 Laboratory: WBC 14.6 X10^3/uL (3.6-10.0) H 07/31/21 12:40 RBC 3.94 X10^6/uL (3.5-5.4) 07/31/21 12:40 Hgb 10.5 g/dL (12.0-16.0) L 07/31/21 12:40 Hct 32.5 % (36.0-47.0) L 07/31/21 12:40 MCV 82.3 fL (80.0-100.0) 07/31/21 12:40 MCH 26.5 pg (27.0-34.0) L 07/31/21 12:40 MCHC 32.3 g/dL (33.0-35.0) L 07/31/21 12:40 RDW 18.1 % (11.6-16.5) H 07/31/21 12:40 Plt Count 391 X10^3/uL (150.0-450.0) 07/31/21 12:40 MPV 8.1 fL (7.4-11.0) 07/31/21 12:40 Neut % (Auto) 76.3 % (42.0-75.0) H 07/31/21 12:40 Lymph % (Auto) 9.6 % (21.0-51.0) L 07/31/21 12:40 [place] % (Auto) 10.6 % (0.0-13.0) 07/31/21 12:40 Eos % (Auto) 3.2 % (0.9-2.9) H 07/31/21 12:40 Baso % (Auto) 0.3 % (0.2-1.0) 07/31/21 12:40 Neut # (Auto) 11.1 x10^3/uL (2.2-4.8) H 07/31/21 12:40 Lymph # (Auto) 1.4 X10^3/uL (1.3-2.9) 07/31/21 12:40 [place] # (Auto) 1.5 x10^3/uL (0.3-0.8) H 07/31/21 12:40 Eos # (Auto) 0.5 x10^3/uL (0.0-0.2) H 07/31/21 12:40 Baso # (Auto) 0.0 X10^3/uL (0.0-0.1) 07/31/21 12:40 Absolute Nucleated RBC 0.0 /100WBC 07/31/21 12:40 Sodium 143 mmol/L (136-145) 07/31/21 12:40 Corrected Sodium TNP 07/31/21 12:40 Potassium 4.4 mmol/L (3.5-5.1) 07/31/21 12:40 Chloride 106 mmol/L (98-107) 07/31/21 12:40 Carbon Dioxide 27.5 mmol/L (21-32) 07/31/21 12:40 BUN 9 mg/dL (7-18) 07/31/21 12:40 Creatinine 0.90 mg/dL (0.55-1.02) 07/31/21 12:40 Est GFR (MDRD) Af Amer > 60 (>60) 07/31/21 12:40 Est GFR (MDRD) Non-Af > 60 (>60) 07/31/21 12:40 Glucose 81 mg/dL (65-99) 07/31/21 12:40 Calcium 8.2 mg/dL (8.5-10.1) L 07/31/21 12:40 Corrected Calcium 9.3 mg/dL (8.5-10.1) 07/31/21 12:40 Total Bilirubin 0.50 mg/dL (0.2-1.0) 07/31/21 12:40 AST 39 Units/L (15-37) H 07/31/21 12:40 ALT 17 Units/L (12-78) 07/31/21 12:40 Alkaline Phosphatase 85 Units/L (46-116) 07/31/21 12:40 Creatine Kinase 172 Units/L (26-192) 07/31/21 12:40 CK-MB (CK-2) 4.2 ng/mL (0-4.0) H* 07/31/21 12:40 CK/CKMB % Calc 2.4 % (<4) 07/31/21 12:40 Troponin I < 0.02 ng/mL (0-1.5) 07/31/21 12:40 B-Natriuretic Peptide 45.3 pg/mL (0-79) 07/31/21 12:40 Total Protein 6.1 g/dL (6.4-8.2) L 07/31/21 12:40 Albumin 2.6 g/dL (3.4-5.0) L 07/31/21 12:40 Globulin 3.5 g/dL (2.5-4.5) 07/31/21 12:40 Albumin/Globulin Ratio 0.7 Ratio (1.1-2.1) L 07/31/21 12:40 SARS CoV-2 RNA Rapid SUZANNE Negative (NEGATIVE) 07/31/21 14:16 Opioid Opioid Risk Tool Age (Jon box if 16-45): No History of Preadolescent Sexual Abuse: No Total: 0 Total Score Risk Category: Low Risk Copyright: Chele COBURN predicting aberrant behaviors Diagnosis Discharge Problem: COPD with acute exacerbation, Bronchitis, SOB (shortness of breath) Instructions Instructions: Chronic Obstructive Pulmonary Disease Exacerbation, [id number] Acute Kidney Injury, Adult Hypertension, Adult, [id number] Forms: Excuse From Work or School Precautions for COVID19 [facility] Social Distancing
[2021-07-31 12:53] LABS: BASOPHILS % (AUTO) 0.3 % (0.2-1.0); EOSINOPHILS # (AUTO) 0.5 x10^3/uL (0.0-0.2); EOSINOPHILS % (AUTO) 3.2 % (0.9-2.9); HEMATOCRIT 32.5 % (36.0-47.0); HEMOGLOBIN 10.5 g/dL (12.0-16.0); LYMPHOCYTES # (AUTO) 1.4 X10^3/uL (1.3-2.9); LYMPHOCYTES % (AUTO) 9.6 % (21.0-51.0); MEAN CORPUSCULAR HEMOGLOBIN 26.5 pg (27.0-34.0); MEAN CORPUSCULAR HGB CONC 32.3 g/dL (33.0-35.0); MEAN CORPUSCULAR VOLUME 82.3 fL (80.0-100.0); MEAN PLATELET VOLUME 8.1 fL (7.4-11.0); MONOCYTES # (AUTO) 1.5 x10^3/uL (0.3-0.8); MONOCYTES % (AUTO) 10.6 % (0.0-13.0); NEUTROPHILS # (AUTO) 11.1 x10^3/uL (2.2-4.8); NEUTROPHILS % (AUTO) 76.3 % (42.0-75.0); PLATELET COUNT 391 X10^3/uL (150.0-450.0); RED BLOOD COUNT 3.94 X10^6/uL (3.5-5.4); RED CELL DISTRIBUTION WIDTH 18.1 % (11.6-16.5); WHITE BLOOD COUNT 14.6 X10^3/uL (3.6-10.0)
[2021-07-31 13:30] LABS: ALANINE AMINOTRANSFERASE 17 Units/L (12-78); ALBUMIN 2.6 g/dL (3.4-5.0); ALKALINE PHOSPHATASE 85 Units/L (46-116); ASPARTATE AMINO TRANSFERASE 39 Units/L (15-37); BLOOD UREA NITROGEN 9 mg/dL (7-18); CALCIUM 8.2 mg/dL (8.5-10.1); CARBON DIOXIDE 27.5 mmol/L (21-32); CHLORIDE 106 mmol/L (98-107); CKMB % 2.4 % (<4); COR CA(FOR HYPOALB) 9.3 mg/dL (8.5-10.1); CREATINE KINASE 172 Units/L (26-192); SODIUM 143 mmol/L (136-145); TOTAL PROTEIN 6.1 g/dL (6.4-8.2); TROPONIN I < 0.02 ng/mL (0-1.5); eGFR NON BLACK RACES > 60 (>60)
[2021-07-31 13:34] LABS: CREATINE KINASE MB 4.2 ng/mL (0-4.0)
[2021-07-31] MEDS ORDERED: SOLU-Medrol 125 MG VIAL IVP ONE (14:42)
[2021-07-31] MEDS ORDERED: ROCEPHIN 1 GRAM IV PREMIX 1 G/50 ML IV.SOLN. IV ONE ×2 (14:43→14:49)
[2021-07-31] MEDS ORDERED: SOLU-Medrol 125 MG VIAL ONE (14:48)
--- NOTE | 2021-07-31 15:10 | RAD ---
HISTORYChest pain SOBSTUDYPortable AP [id number] ed normal heart size. There is slight convex prominence of the main pulmonary artery. There is chronic interstitial coarsening without evidence for airspace consolidation or pleural effusion.IMPRESSIONNo definite interval change or acute chest findings. Probable COPD/emphysema as described on chest CT of 03/29/2021. Prominence of the central and main pulmonary arteries may indicate pulmonary arterial hypertension related to the emphysema.Electronically signed by: BALTAZAR NYE (Jul 31, 2021 15:09:32)
[2021-07-31] MEDS ORDERED: ULTRAM PO PRN (16:18)
[2021-07-31] MEDS ORDERED: MOBIC TAB 15 MG PO PRN (16:18)
[2021-07-31] MEDS: NS 1,000 ML IV 1,000 ML IV SCH (16:48)
[2021-07-31 17:09] LABS: APPEARANCE,URINE SLIGHTLY HAZY (CLEAR); COLOR,URINE DARK YELLOW (YELLOW); PH,URINE 6.5 (5.0 - 8.0)
[2021-07-31 17:10] LABS: BLOOD/HEMOGLOBIN,URINE NEGATIVE (NEGATIVE); GLUCOSE, URINE NEGATIVE (NEGATIVE); KETONES,URINE NEGATIVE (NEGATIVE); PROTEIN,URINE 2+ (NEGATIVE)
[2021-07-31 17:11] LABS: BILIRUBIN,URINE NEGATIVE (NEGATIVE); LEUKOCYTE ESTERASE ,URINE 1+ (NEGATIVE); NITRITES,URINE NEGATIVE (NEGATIVE); UROBILINOGEN,URINE NORMAL (NORMAL)
[2021-07-31 17:12] LABS: BACTERIA,URINE TRACE /HPF (NEGATIVE); RBC,URINE NONE SEEN /HPF (0-3); SQUAMOUS EPITHELIAL CELL,UR MODERATE /HPF (NEGATIVE)
[2021-07-31] MEDS ORDERED: DUONEB 0.5 MG/3 MG (3 mL) NEB ONE (19:08)
[2021-07-31] MEDS ORDERED: PULMICORT NEB TX 0.5 MG NEB ONE (19:08)
[2021-07-31] MEDS: DUONEB 0.5 MG/3 MG (3 mL) NEB SCH (20:10)
[2021-07-31] MEDS: PULMICORT NEB TX 0.5 MG NEB SCH (20:10)
[2021-07-31] MEDS: PROTONIX TAB 40 MG PO SCH (21:42)
[2021-07-31] MEDS: ELAVIL PO SCH (21:42)
[2021-07-31] MEDS: COREG TAB 3.125 MG PO SCH (21:42)
[2021-07-31] MEDS: NEURONTIN CAP 300 MG PO SCH (21:42)
[2021-07-31] MEDS: XANAX PO PRN (21:43)
[2021-07-31 23:45] LABS: CKMB % 2.7 % (<4); CREATINE KINASE 88 Units/L (26-192); CREATINE KINASE MB 2.4 ng/mL (0-4.0); TROPONIN I < 0.02 ng/mL (0-1.5)
[2021-08-01] MEDS: DUONEB 0.5 MG/3 MG (3 mL) NEB SCH ×6 (00:10→20:15)
[2021-08-01] MEDS: ROBITUSSIN DM PO PRN ×2 (01:25→20:40)
[2021-08-01 06:16] LABS: BASOPHILS % (AUTO) 0.2 % (0.2-1.0); HEMATOCRIT 31.3 % (36.0-47.0); HEMOGLOBIN 10.1 g/dL (12.0-16.0); LYMPHOCYTES # (AUTO) 0.8 X10^3/uL (1.3-2.9); MEAN CORPUSCULAR HEMOGLOBIN 26.4 pg (27.0-34.0); MEAN CORPUSCULAR HGB CONC 32.1 g/dL (33.0-35.0); MEAN CORPUSCULAR VOLUME 82.2 fL (80.0-100.0); MEAN PLATELET VOLUME 8.1 fL (7.4-11.0); MONOCYTES # (AUTO) 0.4 x10^3/uL (0.3-0.8); MONOCYTES % (AUTO) 3.4 % (0.0-13.0); NEUTROPHILS # (AUTO) 10.1 x10^3/uL (2.2-4.8); NEUTROPHILS % (AUTO) 89.4 % (42.0-75.0); PLATELET COUNT 352 X10^3/uL (150.0-450.0); RED BLOOD COUNT 3.81 X10^6/uL (3.5-5.4); RED CELL DISTRIBUTION WIDTH 17.7 % (11.6-16.5); WHITE BLOOD COUNT 11.3 X10^3/uL (3.6-10.0)
[2021-08-01 06:33] LABS: ALANINE AMINOTRANSFERASE 14 Units/L (12-78); ALBUMIN 2.6 g/dL (3.4-5.0); ALKALINE PHOSPHATASE 100 Units/L (46-116); ASPARTATE AMINO TRANSFERASE 16 Units/L (15-37); BLOOD UREA NITROGEN 8 mg/dL (7-18); CALCIUM 8.4 mg/dL (8.5-10.1); CARBON DIOXIDE 25.1 mmol/L (21-32); CHLORIDE 107 mmol/L (98-107); CKMB % 2.6 % (<4); COR CA(FOR HYPOALB) 9.5 mg/dL (8.5-10.1); COR NA(FOR HYPERGLY) 145 mmol/L (136-145); CREATINE KINASE 70 Units/L (26-192); CREATINE KINASE MB 1.8 ng/mL (0-4.0); SODIUM 143 mmol/L (136-145); TROPONIN I < 0.02 ng/mL (0-1.5); eGFR NON BLACK RACES > 60 (>60)
[2021-08-01] MEDS: NEURONTIN CAP 300 MG PO SCH ×3 (06:59→21:37)
[2021-08-01] MEDS: NS 1,000 ML IV 1,000 ML IV SCH ×2 (06:59→20:39)
[2021-08-01] MEDS: ALDACTONE TAB 25 MG PO SCH (09:00)
[2021-08-01] MEDS: PROTONIX TAB 40 MG PO SCH ×2 (09:01→21:37)
[2021-08-01] MEDS: SINGULAIR TAB 10 MG PO SCH (09:01)
[2021-08-01] MEDS: PLAVIX PO SCH (09:01)
[2021-08-01] MEDS: COREG TAB 3.125 MG PO SCH ×2 (09:01→21:36)
[2021-08-01] MEDS: ASPIRIN EC 81 MG PO SCH (09:01)
[2021-08-01] MEDS: EFFEXOR XR 75 MG CAP 24-HR PO SCH (09:01)
[2021-08-01] MEDS: PULMICORT NEB TX 0.5 MG NEB SCH ×2 (09:10→20:15)
[2021-08-01] MEDS: LOVENOX INJ 40 MG SYR SC SCH (10:17)
[2021-08-01 13:58] LABS: ABG ALLEN TEST POS; ABG BASE EXCESS 0.7 mmol/L (-2.0-2.0); ABG HCO3 25.4 mmol/L (22-26)
--- NOTE | 2021-08-01 15:30 | CT ---
BRAIN W/O CONHistory: AMSTechnique: CT images of the brain were obtained without contrast. Reformatted images in the coronal and sagittal planes also generated for review. 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 Remaining patricia-white differentiation is maintained. No visible acute infarction is identified. If clinical concern for acute ischemia remains high and would make a clinical difference to diagnose stroke now, consider MRI for further evaluation. There is no intracranial hemorrhage, extra-axial collection, hydrocephalus or mass. Visualized paranasal sinuses and mastoid air cells are clear. Imaged extracranial structures are grossly unremarkable.Impression:No acute intracranial abnormality.Stable chronic ischemic changes as above.Electronically signed by: ELPIDIO MAGUIRE (Aug 01, 2021 15:23:44)
--- NOTE | 2021-08-01 19:14 | DR.H&P ---
H&P - History & Physical for Day of: H&P Date: 07/31/21 - Chief Complaint Chief Complaint: Falls, confusion - History of Present Illness History of Present Illness: Patient is a 65 year old white female who was admitted due to recurrent falls and confusion. Patient is confused but alert. Patient has a history of chronic resp failure and COPD. Patient denies CP, SOB, changes in appetite, bowel or bladder. History limited due to confusion. PMH COPD (oxygen dependent), BALTAZAR, CAD, and multiple other conditions. - Past Medical History Past Medical History: Angina, Hypertension, Dyslipidemia, Depression, Anxiety, Seizures, COPD, Asthma, GERD Additional Medical History: Chronic Back Pain, Bipolar disorder, Muscle Weakness, Previous blood transfusion - Past Surgical History Surgical History: , Hysterectomy, Joint Replacement Additional Surgical History: Deviated Septum Repair - Family History Family Medical History: Cancer, Coronary Artery Disease, Hypertension - Social History Does patient currently use any type of tobacco product: No Have you used tobacco products in the last 12 months: No Type of Tobacco Use: None Does any household member use tobacco: No Alcohol Use: None Drug Use: None - Medications Home Medications: codeine Allergy (Verified 07/31/21 11:26) promethazine [From Phenergan] Allergy (Verified 07/31/21 11:26) Sulfa (Sulfonamide Antibiotics) [SULFA] Allergy (Verified 07/31/21 11:26) CONTINUE taking the following medications alprazolam 0.5 mg PO BID PRN 07/31/21 [History] aspirin [Aspirin Low Dose] 81 mg PO DAILY 07/31/21 [History] - Review of Systems Constitutional: See HPI Eyes: See HPI ENT: See HPI Respiratory: See HPI Cardiovascular: See HPI Gastrointestinal: See HPI Genitourinary: See HPI Musculoskeletal: See HPI Skin: See HPI Neurological: See HPI - Physical Exam Vital Signs: Temperature 98 F Pulse Rate [Left Radial] 95 Pulse Rate 84 Respiratory Rate 20 Blood Pressure [Right Arm] 131/61 Blood Pressure 117/87 O2 Sat by Pulse Oximetry 96 Oriented: Not Oriented Eyes: Normal Ear: Normal Nose: Normal Throat: Normal Respiratory: Diminished Throughout, Rhonchi Throughout Cardiovascular: Normal : Normal Auscultation: Bowel Sounds: Normal Palpation: Normal Tenderness: Normal Skin: Normal Musculoskeletal: Instability (generalized global weakness) Psychiatric: Normal Mood Description: Calm Affect: Normal Speech Pattern: Inappropriate - Assessment/Plan (1) Fall Status: Acute Plan: Physical therapy. CT head. Verify home meds. Repeat labs in am. ABG. See EMR for further orders (2) Altered mental status Qualifiers: Altered mental status type: somnolence Qualified Code(s): R40.0 - Somnolence Status: Resolved Plan: See above (3) COPD with acute exacerbation Status: Acute Plan: IV abx. Duo nebs. See above - Allergies Allergies/Adverse Reactions: Allergies Allergy/AdvReac Type Severity Reaction Status Date / Time codeine Allergy Verified 07/31/21 11:26 promethazine [From Phenergan] Allergy Verified 07/31/21 11:26 Sulfa (Sulfonamide Allergy Verified 07/31/21 11:26 Antibiotics) [SULFA]
--- NOTE | 2021-08-01 19:18 | PCM.PROG ---
Progress Note - Subjective Subjective: Patient is a 65 year old white female who was admitted as per HPI. Patient continues to be confused. Patient was originally admitted due to AMS and fall. Cultures and IV abx ordered. Plan for dc in am pending mentation. No other changes or concerns at present. - Past Medical Family Social History Past Med/Fam/Surg Hx: No changes since H&P Allergies: Allergies codeine Allergy (Verified 07/31/21 11:26) promethazine [From Phenergan] Allergy (Verified 07/31/21 11:26) Sulfa (Sulfonamide Antibiotics) [SULFA] Allergy (Verified 07/31/21 11:26) - Review of Systems ROS: No change since H&P - Vital Signs and I&O's Vital Signs: Temperature 98 F Pulse Rate [Left Radial] 95 Pulse Rate 84 Respiratory Rate 20 Blood Pressure [Right Arm] 131/61 Blood Pressure 117/87 O2 Sat by Pulse Oximetry 96 Intake and Output: Intake & Output 07/29/21 07/30/21 07/31/21 08/01/21 23:59 23:59 23:59 23:59 Intake Total 528 / 528 1867 / 1867 Output Total 400 / 400 Balance 528 / 528 1467 / 1467 - Physical Exam Oriented: Not Oriented Eyes: Normal Ear: Normal Nose: Normal Throat: Normal Cardiovascular: Normal : Normal Auscultation: Bowel Sounds: Normal Palpation: Normal Tenderness: Normal Skin: Normal Musculoskeletal: Instability (generalized global weakness) Psychiatric: Normal Mood Description: Calm Affect: Normal Speech Pattern: Inappropriate - Laboratory and Diagnostics Result Diagrams: 08/01/21 05:16 08/01/21 05:16 Labs: Laboratory WBC 11.3 X10^3/uL (3.6-10.0) H 08/01/21 05:16 RBC 3.81 X10^6/uL (3.5-5.4) 08/01/21 05:16 Hgb 10.1 g/dL (12.0-16.0) L 08/01/21 05:16 Hct 31.3 % (36.0-47.0) L 08/01/21 05:16 MCV 82.2 fL (80.0-100.0) 08/01/21 05:16 MCH 26.4 pg (27.0-34.0) L 08/01/21 05:16 MCHC 32.1 g/dL (33.0-35.0) L 08/01/21 05:16 RDW 17.7 % (11.6-16.5) H 08/01/21 05:16 Plt Count 352 X10^3/uL (150.0-450.0) 08/01/21 05:16 MPV 8.1 fL (7.4-11.0) 08/01/21 05:16 Neut % (Auto) 89.4 % (42.0-75.0) H 08/01/21 05:16 Lymph % (Auto) 7.0 % (21.0-51.0) L 08/01/21 05:16 [place] % (Auto) 3.4 % (0.0-13.0) 08/01/21 05:16 Eos % (Auto) 0.0 % (0.9-2.9) L 08/01/21 05:16 Baso % (Auto) 0.2 % (0.2-1.0) 08/01/21 05:16 Neut # (Auto) 10.1 x10^3/uL (2.2-4.8) H 08/01/21 05:16 Lymph # (Auto) 0.8 X10^3/uL (1.3-2.9) L 08/01/21 05:16 [place] # (Auto) 0.4 x10^3/uL (0.3-0.8) 08/01/21 05:16 Eos # (Auto) 0.0 x10^3/uL (0.0-0.2) 08/01/21 05:16 Baso # (Auto) 0.0 X10^3/uL (0.0-0.1) 08/01/21 05:16 Absolute Nucleated RBC 0.1 /100WBC 08/01/21 05:16 Sample Site Lr 08/01/21 13:43 ABG pH 7.410 (7.35-7.45) 08/01/21 13:43 ABG pCO2 40.0 mmHg (35.0-45.0) 08/01/21 13:43 ABG pO2 80.0 mmHg (80.0-100.0) 08/01/21 13:43 ABG HCO3 25.4 mmol/L (22-26) 08/01/21 13:43 ABG O2 Saturation 96.0 % (90-100) 08/01/21 13:43 ABG Base Excess 0.7 mmol/L (-2.0-2.0) 08/01/21 13:43 Dominic Test Pos 08/01/21 13:43 A-a Gradient 70.0 mmHg 08/01/21 13:43 FiO2 28.0 08/01/21 13:43 Blood Gas Comments Pt [facility]. sd 08/01/21 13:43 Sodium 143 mmol/L (136-145) 08/01/21 05:16 Corrected Sodium 145 mmol/L (136-145) 08/01/21 05:16 Potassium 3.4 mmol/L (3.5-5.1) L 08/01/21 05:16 Chloride 107 mmol/L (98-107) 08/01/21 05:16 Carbon Dioxide 25.1 mmol/L (21-32) 08/01/21 05:16 BUN 8 mg/dL (7-18) 08/01/21 05:16 Creatinine 0.90 mg/dL (0.55-1.02) 08/01/21 05:16 Est GFR (MDRD) Af Amer > 60 (>60) 08/01/21 05:16 Est GFR (MDRD) Non-Af > 60 (>60) 08/01/21 05:16 Glucose 191 mg/dL (65-99) H 08/01/21 05:16 Calcium 8.4 mg/dL (8.5-10.1) L 08/01/21 05:16 Corrected Calcium 9.5 mg/dL (8.5-10.1) 08/01/21 05:16 Total Bilirubin 0.20 mg/dL (0.2-1.0) 08/01/21 05:16 AST 16 Units/L (15-37) 08/01/21 05:16 ALT 14 Units/L (12-78) 08/01/21 05:16 Alkaline Phosphatase 100 Units/L (46-116) 08/01/21 05:16 Creatine Kinase 70 Units/L (26-192) 08/01/21 05:16 CK-MB (CK-2) 1.8 ng/mL (0-4.0) 08/01/21 05:16 CK/CKMB % Calc 2.6 % (<4) 08/01/21 05:16 Troponin I < 0.02 ng/mL (0-1.5) 08/01/21 05:16 B-Natriuretic Peptide 45.3 pg/mL (0-79) 07/31/21 12:40 Total Protein 6.0 g/dL (6.4-8.2) L 08/01/21 05:16 Albumin 2.6 g/dL (3.4-5.0) L 08/01/21 05:16 Globulin 3.4 g/dL (2.5-4.5) 08/01/21 05:16 Albumin/Globulin Ratio 0.8 Ratio (1.1-2.1) L 08/01/21 05:16 Specimen Type Cancelled 07/31/21 16:45 Specimen Type Clean catch urine 07/31/21 16:45 Urine Color Cancelled 07/31/21 16:45 Urine Color Dark yellow (YELLOW) 07/31/21 16:45 Urine Appearance Cancelled 07/31/21 16:45 Urine Appearance Slightly hazy (CLEAR) 07/31/21 16:45 Urine pH 6.5 (5.0 - 8.0) 07/31/21 16:45 Urine pH Cancelled 07/31/21 16:45 Ur Specific [place] 1.015 (1.000-1.030) 07/31/21 16:45 Ur Specific [place] Cancelled 07/31/21 16:45 Urine Protein 2+ (NEGATIVE) 07/31/21 16:45 Urine Protein Cancelled 07/31/21 16:45 Urine Glucose (UA) Cancelled 07/31/21 16:45 Urine Glucose (UA) Negative (NEGATIVE) 07/31/21 16:45 Urine Ketones Cancelled 07/31/21 16:45 Urine Ketones Negative (NEGATIVE) 07/31/21 16:45 Urine Occult Blood Cancelled 07/31/21 16:45 Urine Occult Blood Negative (NEGATIVE) 07/31/21 16:45 Urine Nitrite Cancelled 07/31/21 16:45 Urine Nitrite Negative (NEGATIVE) 07/31/21 16:45 Urine Bilirubin Cancelled 07/31/21 16:45 Urine Bilirubin Negative (NEGATIVE) 07/31/21 16:45 Urine Urobilinogen Cancelled 07/31/21 16:45 Urine Urobilinogen Normal (NORMAL) 07/31/21 16:45 Ur Leukocyte Esterase 1+ (NEGATIVE) 07/31/21 16:45 Ur Leukocyte Esterase Cancelled 07/31/21 16:45 Urine RBC None seen /HPF (0-3) 07/31/21 16:45 Urine WBC 3-5 /HPF (0-5) 07/31/21 16:45 Ur Squamous Epith Cells Moderate /HPF (NEGATIVE) 07/31/21 16:45 Urine Bacteria Trace /HPF (NEGATIVE) 07/31/21 16:45 Ur Culture Indicated? No/not indicated 07/31/21 16:45 SARS CoV-2 RNA Rapid SUZANNE Negative (NEGATIVE) 07/31/21 14:16 - Plan (1) Fall Status: Acute Plan: Physical therapy. CT head. Verify home meds. Repeat labs in am. ABG. See EMR for further orders (2) Altered mental status Status: Resolved Qualifiers: Altered mental status type: somnolence Qualified Code(s): R40.0 - Somnolence Plan: See above (3) COPD with acute exacerbation Status: Acute Plan: IV abx. Duo nebs. See above (4) Generalized weakness Status: Acute Plan: PT
[2021-08-01] MEDS: ZITHROMAX INJ 500 MG VIAL 500 MG in NS 250 ML IV 250 ML IV SCH (20:39)
[2021-08-01] MEDS: ELAVIL PO SCH (21:36)
[2021-08-01] MEDS: ROCEPHIN VIAL 1 GRAM 1 G in NS 100 ML IV + SPIKE MINIBAG* 100 ML IV SCH (21:36)
[2021-08-01] MEDS: XANAX PO PRN (21:37)
[2021-08-02] MEDS: DUONEB 0.5 MG/3 MG (3 mL) NEB SCH ×4 (00:34→14:11)
[2021-08-02 04:50] LABS: ABG BASE EXCESS 1.8 mmol/L (-2.0-2.0); ABG HCO3 27.7 mmol/L (22-26)
[2021-08-02 04:51] LABS: ABG ALLEN TEST POS
[2021-08-02] MEDS: NEURONTIN CAP 300 MG PO SCH ×2 (05:21→14:19)
--- NOTE | 2021-08-02 06:13 | RAD ---
HISTORYHYPOXIA COPD, HTN. HYSTERECTOMY, ORTHO, CAROTID, C-SECTIONSTUDYCHEST, 1 [id number]/29/2021FINDINGSThe trachea is midline. The cardiac silhouette is unremarkable. The lungs are clear without focal infiltrate or effusion. Pulmonary vasculature within normal limits. No pneumothorax. The bony thorax is unremarkable.IMPRESSIONNo acute cardiopulmonary findings .Electronically signed by: Lio Brooks (Aug 02, 2021 06:12:30)
[2021-08-02 06:23] LABS: BASOPHILS # (AUTO) 0.2 X10^3/uL (0.0-0.1); BASOPHILS % (AUTO) 1.3 % (0.2-1.0); EOSINOPHILS % (AUTO) 0.3 % (0.9-2.9); HEMATOCRIT 34.4 % (36.0-47.0); HEMOGLOBIN 10.8 g/dL (12.0-16.0); LYMPHOCYTES # (AUTO) 1.4 X10^3/uL (1.3-2.9); LYMPHOCYTES % (AUTO) 10.4 % (21.0-51.0); MEAN CORPUSCULAR HEMOGLOBIN 25.9 pg (27.0-34.0); MEAN CORPUSCULAR HGB CONC 31.5 g/dL (33.0-35.0); MEAN CORPUSCULAR VOLUME 82.3 fL (80.0-100.0); MEAN PLATELET VOLUME 8.5 fL (7.4-11.0); MONOCYTES # (AUTO) 1.3 x10^3/uL (0.3-0.8); NEUTROPHILS # (AUTO) 10.5 x10^3/uL (2.2-4.8); PLATELET COUNT 363 X10^3/uL (150.0-450.0); RED BLOOD COUNT 4.18 X10^6/uL (3.5-5.4); RED CELL DISTRIBUTION WIDTH 17.9 % (11.6-16.5); WHITE BLOOD COUNT 13.4 X10^3/uL (3.6-10.0)
[2021-08-02 06:49] LABS: ALANINE AMINOTRANSFERASE 12 Units/L (12-78); ALBUMIN 2.6 g/dL (3.4-5.0); ALKALINE PHOSPHATASE 93 Units/L (46-116); ASPARTATE AMINO TRANSFERASE 19 Units/L (15-37); BLOOD UREA NITROGEN 8 mg/dL (7-18); CALCIUM 8.3 mg/dL (8.5-10.1); CARBON DIOXIDE 26.4 mmol/L (21-32); CHLORIDE 110 mmol/L (98-107); COR CA(FOR HYPOALB) 9.4 mg/dL (8.5-10.1); MAGNESIUM 2.4 mg/dL (1.7-2.9); SODIUM 146 mmol/L (136-145); TOTAL PROTEIN 6.2 g/dL (6.4-8.2); eGFR NON BLACK RACES > 60 (>60)
[2021-08-02] MEDS: NS 1,000 ML IV 1,000 ML IV SCH (07:47)
[2021-08-02] MEDS: ALDACTONE TAB 25 MG PO SCH (08:07)
[2021-08-02] MEDS: COREG TAB 3.125 MG PO SCH (08:07)
[2021-08-02] MEDS: ASPIRIN EC 81 MG PO SCH (08:07)
[2021-08-02] MEDS: EFFEXOR XR 75 MG CAP 24-HR PO SCH (08:08)
[2021-08-02] MEDS: PLAVIX PO SCH (08:09)
[2021-08-02] MEDS: SINGULAIR TAB 10 MG PO SCH (08:09)
[2021-08-02] MEDS: ZITHROMAX INJ 500 MG VIAL 500 MG in NS 250 ML IV 250 ML IV SCH (08:09)
[2021-08-02] MEDS: PROTONIX TAB 40 MG PO SCH (08:09)
[2021-08-02] MEDS: ROCEPHIN VIAL 1 GRAM 1 G in NS 100 ML IV + SPIKE MINIBAG* 100 ML IV SCH (08:10)
[2021-08-02] MEDS: PULMICORT NEB TX 0.5 MG NEB SCH (08:41)
[2021-08-02] MEDS: LOVENOX INJ 40 MG SYR SC SCH (11:02)
[2021-08-02 16:25] VITALS: BP 130/59
== END 2021-08-02 16:55 | disposition home health service (06) ==
LOC: MED/SURG 11:22 → ER 11:22 → MED/SURG 16:16
PROVIDERS: ADMIT Internal Medicine; ATTEND Internal Medicine
DX: J44.1 Chronic obstructive pulmonary disease with (acute) exacerbation; R29.6 Repeated falls; Z20.822 Contact with and (suspected) exposure to COVID-19; R06.02 Shortness of breath; I10 Essential (primary) hypertension; J20.8 Acute bronchitis due to other specified organisms; R40.4 Transient alteration of awareness; R53.1 Weakness

== ENCOUNTER 2021-09-19 14:33 | Observation (INO) ==
[2021-09-19 15:30] LABS: ABG ALLEN TEST POS; ABG BASE EXCESS 2.1 mmol/L (-2.0-2.0); ABG HCO3 27.8 mmol/L (22-26)
--- NOTE | 2021-09-19 15:48 | RAD ---
HISTORYSOB, COPDSTUDYCHEST x-ray, 1 VIEWCOMPARISONX-ray 09/08/2021FINDINGSPossible peripheral infiltrates but appearance could be artifactual due to soft tissue attenuation. This appearance is similar to prior study, though. Consider evaluation with PA and lateral views of the chest or CT.Probable COPD. Heart is normal in size. No pneumothorax or pleural effusion is seen.IMPRESSIONThere is concern for moderate bilateral pneumonia, possibly COVID-19. However, appearance could be artifactual.Consider further evaluation with PA and lateral views of the chest or CT of the chest.Persistent COPD changes.Electronically signed by: Dalton Moe (Sep 19, 2021 15:46:16)
[2021-09-19 17:27] VITALS: BMI 28.8
[2021-09-19 17:31] LABS: ALANINE AMINOTRANSFERASE 14 Units/L (12-78); ALBUMIN 3.2 g/dL (3.4-5.0); ALKALINE PHOSPHATASE 79 Units/L (46-116); ASPARTATE AMINO TRANSFERASE 19 Units/L (15-37); BLOOD UREA NITROGEN 25 mg/dL (7-18); CALCIUM 9.4 mg/dL (8.5-10.1); CARBON DIOXIDE 26.1 mmol/L (21-32); CHLORIDE 105 mmol/L (98-107); CREATININE 1.31 mg/dL (0.55-1.02); SODIUM 138 mmol/L (136-145); TOTAL PROTEIN 7.2 g/dL (6.4-8.2); eGFR NON BLACK RACES 43 (>60)
[2021-09-19 17:33] LABS: BASOPHILS # (AUTO) 0.1 X10^3/uL (0.0-0.1); BASOPHILS % (AUTO) 0.6 % (0.2-1.0); EOSINOPHILS # (AUTO) 0.6 x10^3/uL (0.0-0.2); EOSINOPHILS % (AUTO) 3.6 % (0.9-2.9); HEMATOCRIT 35.5 % (36.0-47.0); HEMOGLOBIN 11.2 g/dL (12.0-16.0); LYMPHOCYTES % (AUTO) 12.1 % (21.0-51.0); MEAN CORPUSCULAR HEMOGLOBIN 26.9 pg (27.0-34.0); MEAN CORPUSCULAR HGB CONC 31.7 g/dL (33.0-35.0); MEAN PLATELET VOLUME 8.7 fL (7.4-11.0); MONOCYTES # (AUTO) 1.6 x10^3/uL (0.3-0.8); MONOCYTES % (AUTO) 9.6 % (0.0-13.0); NEUTROPHILS # (AUTO) 12.2 x10^3/uL (2.2-4.8); NEUTROPHILS % (AUTO) 74.1 % (42.0-75.0); RED BLOOD COUNT 4.17 X10^6/uL (3.5-5.4); RED CELL DISTRIBUTION WIDTH 18.7 % (11.6-16.5); WHITE BLOOD COUNT 16.5 X10^3/uL (3.6-10.0)
[2021-09-19] MEDS ORDERED: NS 1,000 ML IV 1,000 ML ONE (17:56)
[2021-09-19] MEDS: NS 1,000 ML IV 1,000 ML IV SCH (17:59)
[2021-09-19] MEDS: LEVAQUIN PREMIX IV 500 MG 500 MG/100 ML BAG IV SCH (17:59)
[2021-09-19] MEDS ORDERED: ULTRAM PO PRN (18:00)
[2021-09-19] MEDS: ROBITUSSIN DM PO SCH ×2 (18:00→21:36)
[2021-09-19] MEDS ORDERED: KAYEXALATE SUSP PO ONE (18:00)
[2021-09-19] MEDS: PROTONIX INJ 40 MG VIAL IVP SCH ×2 (18:00→21:36)
[2021-09-19] MEDS ORDERED: XOPENEX HFA IN PRN (18:09)
--- NOTE | 2021-09-19 18:10 | DR.H&P ---
H&P - History & Physical for Day of: H&P Date: 09/19/21 - Chief Complaint Chief Complaint: SOB, CCC, WEAKNESS, DIZZINESS - History of Present Illness History of Present Illness: PT IS [id number] DIRECT ADMIT FROM DR CHARLY BELLO OFFICE WITH SOB, O2 SAT 68-72% IN OFFICE WITH CONFUSION. PT RECENTLY TREATED FOR PNEUMONIA. PTS BROTHER STATES SHE FELL 2X THIS AM. PT STATES HER LEGS ARE WEAK. FAMILY REPORTS SHE IS TOO SICK TO CARE FOR HERSELF. - Past Medical History Past Medical History: Angina, Hypertension, Dyslipidemia, Depression, Anxiety, Seizures, COPD, Asthma, GERD Additional Medical History: Chronic Back Pain, Bipolar disorder, Muscle Weakness, Previous blood transfusion - Past Surgical History Surgical History: , Hysterectomy, Joint Replacement Additional Surgical History: Deviated Septum Repair - Family History Family Medical History: Cancer, Coronary Artery Disease, Hypertension - Social History Does patient currently use any type of tobacco product: No Have you used tobacco products in the last 12 months: No Type of Tobacco Use: Cigarettes Does any household member use tobacco: No Alcohol Use: None Drug Use: None Risks, benefits, and alternatives of opioids discussed: No Prescription drug monitoring program results: PDMP reviewed and no concerns identified - Medications Home Medications: codeine Allergy (Verified 07/31/21 11:26) promethazine [From Phenergan] Allergy (Verified 07/31/21 11:26) Sulfa (Sulfonamide Antibiotics) [SULFA] Allergy (Verified 07/31/21 11:26) CONTINUE taking the following medications furosemide 40 mg PO DAILY 09/19/21 [History] tizanidine 4 mg PO HS PRN 09/19/21 [History] - Review of Systems Constitutional: No Symptoms Reported, Weakness Eyes: No Symptoms Reported ENT: Nose Congestion Respiratory: Cough, Shortness of Breath, Sputum, Wheezing Cardiovascular: No Symptoms Reported Gastrointestinal: Nausea, Other (POOR APPETITE) Genitourinary: No Symptoms Reported Musculoskeletal: Back Pain, Leg Pain Skin: Bruising Neurological: Weakness, Confusion - Physical Exam Vital Signs: Temperature 97.8 F Pulse Rate [Left Brachial] 102 Pulse Rate 78 Respiratory Rate 22 Blood Pressure [Right Arm] 130/59 Blood Pressure [Left Arm] 109/54 Blood Pressure [Right Arm] 132/90 Blood Pressure 99/66 O2 Sat by Pulse Oximetry 96 Oriented: Person Eyes: Normal Ear: Normal Throat: Dry Respiratory: Diminished Throughout, Wheezes Throughout Cardiovascular: Tachycardia. negative: Edema : Normal Auscultation: Bowel Sounds: Normal Palpation: Normal Tenderness: Normal Skin: Decreased [place]urg[place], Bruising Musculoskeletal: Right, Left, Leg, Motor Deficit Psychiatric: Anxiety Affect: Anxious Speech Pattern: Clear (PT HAD BOTH APPROPRIATE AND INAPPROPRIATE RESPONSES) - Assessment/Plan (1) Hypoxemia Status: Acute Plan: ADMIT, CE AND EKG. SUPPLEMENTAL O2, ABG ON ADMISSION. CXR, RESP THERAPY. IV HYDRATION, STRICT I&OS. VERIFY HOME MEDICATION, IV ATBX. (2) Pneumonia Status: Acute (3) Hyperkalemia Status: Acute (4) Dehydration Status: Acute (5) Falls Status: Acute - Allergies Allergies/Adverse Reactions: Allergies Allergy/AdvReac Type Severity Reaction Status Date / Time codeine Allergy Verified 07/31/21 11:26 promethazine [From Phenergan] Allergy Verified 07/31/21 11:26 Sulfa (Sulfonamide Allergy Verified 07/31/21 11:26 Antibiotics) [SULFA]
[2021-09-19 18:58] LABS: CKMB % 4.7 % (<4); CREATINE KINASE MB 1.7 ng/mL (0-4.0)
[2021-09-19 18:58] LABS: ANISOCYTOSIS SLIGHT; HYPOCHROMASIA SLIGHT; PLATELET MORPHOLOGY COMMENT NORMAL (NORMAL)
[2021-09-19] MEDS: BROVANA IN SCH (20:43)
[2021-09-19] MEDS: PULMICORT NEB TX 0.5 MG NEB SCH (20:43)
[2021-09-19] MEDS: XANAX PO PRN (21:36)
[2021-09-19 23:27] LABS: BILIRUBIN,URINE NEGATIVE (NEGATIVE); BLOOD/HEMOGLOBIN,URINE NEGATIVE (NEGATIVE); GLUCOSE, URINE NEGATIVE (NEGATIVE); KETONES,URINE NEGATIVE (NEGATIVE); LEUKOCYTE ESTERASE ,URINE 1+ (NEGATIVE); NITRITES,URINE NEGATIVE (NEGATIVE); PROTEIN,URINE 1+ (NEGATIVE); UROBILINOGEN,URINE NORMAL (NORMAL)
[2021-09-19 23:29] LABS: APPEARANCE,URINE CLEAR (CLEAR); COLOR,URINE YELLOW (YELLOW)
[2021-09-19 23:30] LABS: BACTERIA,URINE TRACE /HPF (NEGATIVE); RBC,URINE NONE SEEN /HPF (0-3); SQUAMOUS EPITHELIAL CELL,UR RARE /HPF (NEGATIVE)
[2021-09-20 06:24] LABS: BASOPHILS % (AUTO) 0.3 % (0.2-1.0); EOSINOPHILS # (AUTO) 0.4 x10^3/uL (0.0-0.2); EOSINOPHILS % (AUTO) 4.4 % (0.9-2.9); HEMATOCRIT 36.9 % (36.0-47.0); HEMOGLOBIN 11.9 g/dL (12.0-16.0); LYMPHOCYTES # (AUTO) 1.2 X10^3/uL (1.3-2.9); LYMPHOCYTES % (AUTO) 14.5 % (21.0-51.0); MEAN CORPUSCULAR HEMOGLOBIN 27.1 pg (27.0-34.0); MEAN CORPUSCULAR HGB CONC 32.2 g/dL (33.0-35.0); MEAN CORPUSCULAR VOLUME 84.2 fL (80.0-100.0); MEAN PLATELET VOLUME 8.5 fL (7.4-11.0); MONOCYTES # (AUTO) 0.9 x10^3/uL (0.3-0.8); MONOCYTES % (AUTO) 10.6 % (0.0-13.0); NEUTROPHILS # (AUTO) 5.9 x10^3/uL (2.2-4.8); NEUTROPHILS % (AUTO) 70.2 % (42.0-75.0); RED BLOOD COUNT 4.38 X10^6/uL (3.5-5.4); RED CELL DISTRIBUTION WIDTH 18.8 % (11.6-16.5); WHITE BLOOD COUNT 8.4 X10^3/uL (3.6-10.0)
[2021-09-20 06:44] LABS: ALANINE AMINOTRANSFERASE 13 Units/L (12-78); ALBUMIN 2.2 g/dL (3.4-5.0); ALKALINE PHOSPHATASE 70 Units/L (46-116); ASPARTATE AMINO TRANSFERASE 15 Units/L (15-37); BLOOD UREA NITROGEN 22 mg/dL (7-18); CALCIUM 8.2 mg/dL (8.5-10.1); CARBON DIOXIDE 26.5 mmol/L (21-32); CHLORIDE 107 mmol/L (98-107); COR CA(FOR HYPOALB) 9.6 mg/dL (8.5-10.1); CREATININE 1.18 mg/dL (0.55-1.02); SODIUM 140 mmol/L (136-145); TOTAL PROTEIN 5.5 g/dL (6.4-8.2); eGFR NON BLACK RACES 49 (>60)
[2021-09-20 07:05] LABS: ANISOCYTOSIS SLIGHT; BAND NEUTROPHILS % 1 % (0-10); PLATELET MORPHOLOGY COMMENT NORMAL (NORMAL)
[2021-09-20] MEDS: PULMICORT NEB TX 0.5 MG NEB SCH ×2 (08:20→20:45)
[2021-09-20] MEDS: BROVANA IN SCH ×2 (08:20→20:45)
[2021-09-20] MEDS: LEVAQUIN PREMIX IV 500 MG 500 MG/100 ML BAG IV SCH (08:40)
[2021-09-20] MEDS: ROBITUSSIN DM PO SCH ×4 (08:40→21:13)
[2021-09-20] MEDS: EFFEXOR XR 75 MG CAP 24-HR PO SCH (08:40)
[2021-09-20] MEDS: PROTONIX INJ 40 MG VIAL IVP SCH ×2 (08:40→21:13)
[2021-09-20] MEDS: PLAVIX PO SCH (08:40)
[2021-09-20] MEDS: XANAX PO PRN ×2 (08:40→21:13)
[2021-09-20] MEDS: LOVENOX INJ 40 MG SYR SC SCH (10:50)
[2021-09-20] MEDS: SPIRIVA HANDIHALER (30 DOSE) IN SCH (17:00)
[2021-09-20] MEDS: NS 1,000 ML IV 1,000 ML IV SCH (18:03)
[2021-09-21 06:07] LABS: BASOPHILS # (AUTO) 0.1 X10^3/uL (0.0-0.1); BASOPHILS % (AUTO) 0.6 % (0.2-1.0); EOSINOPHILS # (AUTO) 0.6 x10^3/uL (0.0-0.2); EOSINOPHILS % (AUTO) 3.9 % (0.9-2.9); HEMATOCRIT 29.1 % (36.0-47.0); HEMOGLOBIN 9.5 g/dL (12.0-16.0); LYMPHOCYTES % (AUTO) 14.1 % (21.0-51.0); MEAN CORPUSCULAR HEMOGLOBIN 27.4 pg (27.0-34.0); MEAN CORPUSCULAR HGB CONC 32.5 g/dL (33.0-35.0); MEAN CORPUSCULAR VOLUME 84.3 fL (80.0-100.0); MEAN PLATELET VOLUME 8.5 fL (7.4-11.0); MONOCYTES # (AUTO) 1.4 x10^3/uL (0.3-0.8); MONOCYTES % (AUTO) 9.5 % (0.0-13.0); NEUTROPHILS # (AUTO) 10.4 x10^3/uL (2.2-4.8); NEUTROPHILS % (AUTO) 71.9 % (42.0-75.0); RED BLOOD COUNT 3.46 X10^6/uL (3.5-5.4); RED CELL DISTRIBUTION WIDTH 18.7 % (11.6-16.5); WHITE BLOOD COUNT 14.5 X10^3/uL (3.6-10.0)
[2021-09-21 06:20] LABS: ALANINE AMINOTRANSFERASE 11 Units/L (12-78); ALBUMIN 2.2 g/dL (3.4-5.0); ALKALINE PHOSPHATASE 85 Units/L (46-116); ASPARTATE AMINO TRANSFERASE 16 Units/L (15-37); BLOOD UREA NITROGEN 13 mg/dL (7-18); CALCIUM 7.8 mg/dL (8.5-10.1); CARBON DIOXIDE 24.6 mmol/L (21-32); CHLORIDE 108 mmol/L (98-107); COR CA(FOR HYPOALB) 9.2 mg/dL (8.5-10.1); CREATININE 1.01 mg/dL (0.55-1.02); SODIUM 143 mmol/L (136-145); TOTAL PROTEIN 5.6 g/dL (6.4-8.2); eGFR NON BLACK RACES 58 (>60)
[2021-09-21] MEDS: BROVANA IN SCH ×2 (08:57→21:39)
[2021-09-21] MEDS: PULMICORT NEB TX 0.5 MG NEB SCH ×2 (08:57→21:39)
[2021-09-21] MEDS: EFFEXOR XR 75 MG CAP 24-HR PO SCH (09:43)
[2021-09-21] MEDS: LEVAQUIN PREMIX IV 500 MG 500 MG/100 ML BAG IV SCH (09:43)
[2021-09-21] MEDS: LOVENOX INJ 40 MG SYR SC SCH (09:43)
[2021-09-21] MEDS: PLAVIX PO SCH (09:43)
[2021-09-21] MEDS: ROBITUSSIN DM PO SCH ×3 (09:44→20:38)
[2021-09-21] MEDS: PROTONIX INJ 40 MG VIAL IVP SCH ×2 (09:44→20:39)
[2021-09-21] MEDS: XANAX PO PRN ×2 (09:44→21:43)
[2021-09-21] MEDS: SPIRIVA HANDIHALER (30 DOSE) IN SCH (10:11)
--- NOTE | 2021-09-21 11:20 | RAD ---
HISTORY:Respiratory distress, COPDStudy: PA and lateral views of the chestComparison:09/19/2021Findings:Lungs are mildly hyperinflated. No infiltrate, effusion, or pneumothorax identified .Cardiac and mediastinal contours are within normal limits.There is increased kyphosis of thoracic spine.IMPRESSION:1.No acute cardiopulmonary abnormality.Electronically signed by: LISBETH BRADLEY (Sep 21, 2021 11:19:08)
--- NOTE | 2021-09-21 18:07 | PCM.PROG ---
Progress Note - Progress Note for Day of Date of Exam: 09/20/21 - Subjective Subjective: Patient is a 65 yo wf who is frequently admitted for COPD exacerbations. Patient reports SOB; she also states she is feeling bad today. Patient was negative for COVID. CXR reveals COPD; chronic changes. Patient reports SOB improved. - Past Medical Family Social History Past Med/Fam/Surg Hx: No changes since H&P Allergies: Allergies codeine Allergy (Verified 07/31/21 11:26) promethazine [From Phenergan] Allergy (Verified 07/31/21 11:26) Sulfa (Sulfonamide Antibiotics) [SULFA] Allergy (Verified 07/31/21 11:26) - Review of Systems ROS: No change since H&P - Vital Signs and I&O's Vital Signs: Temperature 98.6 F Pulse Rate [Left Brachial] 98 Pulse Rate 108 Respiratory Rate 22 Blood Pressure [Right Arm] 145/66 Blood Pressure [Left Arm] 117/56 Blood Pressure [Right Arm] 132/90 Blood Pressure 99/66 O2 Sat by Pulse Oximetry 97 Intake and Output: Intake & Output 09/18/21 09/19/21 09/20/21 09/21/21 23:59 23:59 23:59 23:59 Intake Total 924 / 924 1621 / 1621 805 / 805 Output Total 200 / 200 Balance 724 / 724 1621 / 1621 805 / 805 - Physical Exam Oriented: Normal, Time, Person, Place Eyes: Normal Ear: Normal Nose: Normal Throat: Dry Respiratory: Generalized, Rhonchi Cardiovascular: Tachycardia. negative: Edema : Normal Auscultation: Bowel Sounds: Normal Palpation: Normal Tenderness: Normal Skin: Decreased Turgur, Bruising Musculoskeletal: Right, Left, Leg, Motor Deficit Psychiatric: Normal Mood Description: Calm, Angry Affect: Normal Speech Pattern: Clear, Appropriate - Laboratory and Diagnostics Result Diagrams: 09/21/21 05:15 09/21/21 05:15 Labs: 09/19/21 18:25 Blood Blood Culture - Preliminary 09/19/21 18:09 Blood Blood Culture - Preliminary 09/19/21 23:15 Urine,Clean Catch Urine Culture - Final 09/19/21 19:17 Sputum - Expectorated Sputum Sputum Culture - Preliminary 09/19/21 19:17 Sputum - Expectorated Sputum - Final Laboratory WBC 14.5 X10^3/uL (3.6-10.0) H 09/21/21 05:15 RBC 3.46 X10^6/uL (3.5-5.4) L 09/21/21 05:15 Hgb 9.5 g/dL (12.0-16.0) L D 09/21/21 05:15 Hct 29.1 % (36.0-47.0) L 09/21/21 05:15 MCV 84.3 fL (80.0-100.0) 09/21/21 05:15 MCH 27.4 pg (27.0-34.0) 09/21/21 05:15 MCHC 32.5 g/dL (33.0-35.0) L 09/21/21 05:15 RDW 18.7 % (11.6-16.5) H 09/21/21 05:15 Plt Count 366 X10^3/uL (150.0-450.0) 09/21/21 05:15 Plt Count Comment Adequate (ADEQUATE) 09/20/21 05:35 MPV 8.5 fL (7.4-11.0) 09/21/21 05:15 Neut % (Auto) 71.9 % (42.0-75.0) 09/21/21 05:15 Lymph % (Auto) 14.1 % (21.0-51.0) L 09/21/21 05:15 [facility] % (Auto) 9.5 % (0.0-13.0) 09/21/21 05:15 Eos % (Auto) 3.9 % (0.9-2.9) H 09/21/21 05:15 Baso % (Auto) 0.6 % (0.2-1.0) 09/21/21 05:15 Neut # (Auto) 10.4 x10^3/uL (2.2-4.8) H 09/21/21 05:15 Lymph # (Auto) 2.0 X10^3/uL (1.3-2.9) 09/21/21 05:15 [facility] # (Auto) 1.4 x10^3/uL (0.3-0.8) H 09/21/21 05:15 Eos # (Auto) 0.6 x10^3/uL (0.0-0.2) H 09/21/21 05:15 Baso # (Auto) 0.1 X10^3/uL (0.0-0.1) 09/21/21 05:15 Absolute Nucleated RBC 0.2 /100WBC 09/21/21 05:15 Total Counted 100 09/20/21 05:35 Neutrophils % (Manual) 63 % (39-76) 09/20/21 05:35 Band Neutrophils % 1 % (0-10) 09/20/21 05:35 Lymphocytes % (Manual) 24 % (13-43) 09/20/21 05:35 Monocytes % (Manual) 6 % (4-9) 09/20/21 05:35 Eosinophils % (Manual) 6 % (0-6) 09/20/21 05:35 Plt Morphology Comment Normal (NORMAL) 09/20/21 05:35 RBC Morphology Abnormal (NORMAL) A 09/20/21 05:35 Hypochromasia Slight A 09/19/21 17:05 Anisocytosis Slight A 09/20/21 05:35 Sample Site Rb 09/19/21 13:25 ABG pH 7.380 (7.35-7.45) 09/19/21 13:25 ABG pCO2 47.0 mmHg (35.0-45.0) H 09/19/21 13:25 ABG pO2 60.0 mmHg (80.0-100.0) L 09/19/21 13:25 ABG HCO3 27.8 mmol/L (22-26) H 09/19/21 13:25 ABG O2 Saturation 90.0 % (90-100) 09/19/21 13:25 ABG Base Excess 2.1 mmol/L (-2.0-2.0) H 09/19/21 13:25 Dominic Test Pos 09/19/21 13:25 A-a Gradient 31.0 mmHg 09/19/21 13:25 FiO2 21.0 09/19/21 13:25 Blood Gas Comments Pt lennox well 09/19/21 13:25 Sodium 143 mmol/L (136-145) 09/21/21 05:15 Corrected Sodium TNP 09/21/21 05:15 Potassium 3.9 mmol/L (3.5-5.1) 09/21/21 05:15 Chloride 108 mmol/L (98-107) H 09/21/21 05:15 Carbon Dioxide 24.6 mmol/L (21-32) 09/21/21 05:15 BUN 13 mg/dL (7-18) 09/21/21 05:15 Creatinine 1.01 mg/dL (0.55-1.02) 09/21/21 05:15 Est GFR (MDRD) Af Amer > 60 (>60) 09/21/21 05:15 Est GFR (MDRD) Non-Af 58 (>60) L 09/21/21 05:15 Glucose 100 mg/dL (65-99) H 09/21/21 05:15 Lactic Acid 1.9 mmol/L (0.4-2.0) 09/19/21 18:25 Calcium 7.8 mg/dL (8.5-10.1) L 09/21/21 05:15 Corrected Calcium 9.2 mg/dL (8.5-10.1) 09/21/21 05:15 Total Bilirubin 0.20 mg/dL (0.2-1.0) 09/21/21 05:15 AST 16 Units/L (15-37) 09/21/21 05:15 ALT 11 Units/L (12-78) L 09/21/21 05:15 Alkaline Phosphatase 85 Units/L (46-116) 09/21/21 05:15 Creatine Kinase 36 Units/L (26-192) 09/19/21 18:25 CK-MB (CK-2) 1.7 ng/mL (0-4.0) 09/19/21 18:25 CK/CKMB % Calc 4.7 % (<4) 09/19/21 18:25 Troponin I High Sens 4.7 ng/L (4.0-60.0) 09/19/21 18:25 Total Protein 5.6 g/dL (6.4-8.2) L 09/21/21 05:15 Albumin 2.2 g/dL (3.4-5.0) L 09/21/21 05:15 Globulin 3.4 g/dL (2.5-4.5) 09/21/21 05:15 Albumin/Globulin Ratio 0.6 Ratio (1.1-2.1) L 09/21/21 05:15 Specimen Type Clean catch urine 09/19/21 23:15 Urine Color Yellow (YELLOW) 09/19/21 23:15 Urine Appearance Clear (CLEAR) 09/19/21 23:15 Urine pH 6.0 (5.0 - 8.0) 09/19/21 23:15 Ur Specific [place] 1.010 (1.000-1.030) 09/19/21 23:15 Urine Protein 1+ (NEGATIVE) 09/19/21 23:15 Urine Glucose (UA) Negative (NEGATIVE) 09/19/21 23:15 Urine Ketones Negative (NEGATIVE) 09/19/21 23:15 Urine Occult Blood Negative (NEGATIVE) 09/19/21 23:15 Urine Nitrite Negative (NEGATIVE) 09/19/21 23:15 Urine Bilirubin Negative (NEGATIVE) 09/19/21 23:15 Urine Urobilinogen Normal (NORMAL) 09/19/21 23:15 Ur Leukocyte Esterase 1+ (NEGATIVE) 09/19/21 23:15 Urine RBC None seen /HPF (0-3) 09/19/21 23:15 Urine WBC 5-10 /HPF (0-5) A 09/19/21 23:15 Ur Squamous Epith Cells Rare /HPF (NEGATIVE) 09/19/21 23:15 Urine Bacteria Trace /HPF (NEGATIVE) 09/19/21 23:15 Ur Culture Indicated? No/not indicated 09/19/21 23:15 SARS-CoV-2 (PCR) Negative (NEGATIVE) 09/19/21 15:12 Influenza Type A (PCR) Negative (NEGATIVE) 09/19/21 15:12 Influenza Type B (PCR) Negative (NEGATIVE) 09/19/21 15:12 RSV (PCR) Negative (NEGATIVE) 09/19/21 15:12 - Plan (1) Chronic GERD Status: Acute (2) COPD with acute exacerbation Status: Acute Plan: IV abx, steroids, duo nebs. Trend CXR, Labs, ABG (3) Dehydration Status: Acute Plan: gentle hydration (4) Generalized weakness Status: Acute (5) SOB (shortness of breath) Status: Acute Plan: oxygen supplementation
[2021-09-21] MEDS: NS 1,000 ML IV 1,000 ML IV SCH (20:38)
[2021-09-21] MEDS: SOLU-Medrol 125 MG VIAL IVP SCH (21:42)
[2021-09-22] MEDS: SOLU-Medrol 125 MG VIAL IVP SCH ×2 (06:08→14:30)
--- NOTE | 2021-09-22 06:34 | RAD ---
HISTORYCOPDSTUDYCHEST, 1 VIEWCOMPARISONOne day prior.TECHNIQUEAP view of the chestFINDINGSPatient is rotated. Cardiac and mediastinal contours are within normal limits. No consolidation or segmental lung collapse identified. No definite pleural effusion or pneumothorax. Background of mild COPD.IMPRESSIONNo acute pulmonary process.Electronically signed by: Ck Love (Sep 22, 2021 06:32:57)
[2021-09-22 06:53] LABS: BASOPHILS % (AUTO) 0.4 % (0.2-1.0); HEMATOCRIT 33.1 % (36.0-47.0); HEMOGLOBIN 10.7 g/dL (12.0-16.0); LYMPHOCYTES # (AUTO) 0.9 X10^3/uL (1.3-2.9); LYMPHOCYTES % (AUTO) 6.2 % (21.0-51.0); MEAN CORPUSCULAR HEMOGLOBIN 27.1 pg (27.0-34.0); MEAN CORPUSCULAR HGB CONC 32.3 g/dL (33.0-35.0); MEAN CORPUSCULAR VOLUME 83.9 fL (80.0-100.0); MEAN PLATELET VOLUME 8.3 fL (7.4-11.0); MONOCYTES # (AUTO) 0.1 x10^3/uL (0.3-0.8); MONOCYTES % (AUTO) 0.8 % (0.0-13.0); NEUTROPHILS # (AUTO) 12.7 x10^3/uL (2.2-4.8); NEUTROPHILS % (AUTO) 92.6 % (42.0-75.0); RED BLOOD COUNT 3.95 X10^6/uL (3.5-5.4); RED CELL DISTRIBUTION WIDTH 18.5 % (11.6-16.5); WHITE BLOOD COUNT 13.7 X10^3/uL (3.6-10.0)
[2021-09-22 07:10] LABS: ALANINE AMINOTRANSFERASE 12 Units/L (12-78); ALBUMIN 2.6 g/dL (3.4-5.0); ALKALINE PHOSPHATASE 79 Units/L (46-116); ASPARTATE AMINO TRANSFERASE 18 Units/L (15-37); BLOOD UREA NITROGEN 8 mg/dL (7-18); CALCIUM 8.6 mg/dL (8.5-10.1); CARBON DIOXIDE 24.4 mmol/L (21-32); CHLORIDE 107 mmol/L (98-107); COR CA(FOR HYPOALB) 9.7 mg/dL (8.5-10.1); COR NA(FOR HYPERGLY) 142 mmol/L (136-145); CREATININE 0.85 mg/dL (0.55-1.02); SODIUM 141 mmol/L (136-145); TOTAL PROTEIN 6.5 g/dL (6.4-8.2); eGFR NON BLACK RACES > 60 (>60)
[2021-09-22 07:34] LABS: BAND NEUTROPHILS % 4 % (0-10)
[2021-09-22 07:35] LABS: ANISOCYTOSIS SLIGHT; PLATELET MORPHOLOGY COMMENT NORMAL (NORMAL)
[2021-09-22] MEDS: BROVANA IN SCH (08:46)
[2021-09-22] MEDS: PULMICORT NEB TX 0.5 MG NEB SCH (08:46)
[2021-09-22] MEDS: ROBITUSSIN DM PO SCH ×3 (09:54→14:30)
[2021-09-22] MEDS: PROTONIX INJ 40 MG VIAL IVP SCH (09:56)
[2021-09-22] MEDS: EFFEXOR XR 75 MG CAP 24-HR PO SCH (09:56)
[2021-09-22] MEDS: PLAVIX PO SCH (10:42)
[2021-09-22] MEDS: LEVAQUIN PREMIX IV 500 MG 500 MG/100 ML BAG IV SCH (10:42)
[2021-09-22] MEDS: LOVENOX INJ 40 MG SYR SC SCH (10:42)
[2021-09-22 13:39] VITALS: BP 141/72
--- NOTE | 2021-10-17 16:20 | PCM.DCPLAN ---
Discharge Plan - Discharge Plan Hospital Course: Admit date:09/19/21 Discharge Date: 09/22/21 DOS 09/22/21 Admit diagnosis (1) Hypoxemia (2) Pneumonia (3) Hyperkalemia (4) Dehydration (5) Falls Discharge diagnosis(1) Chronic GERD (2) COPD with acute exacerbation (3) Dehydration (4) Generalized weakness (5) SOB (shortness of breath) (6) Hyperkalemia (7) MICKIE Hospital course: Patient is a 66 year old white female who was admitted due to pneumonia, hypoxia, hyperkalemia, dehydration, and falls. Patient was treated with IV abx and steroids. Patient has a chronic history of COPD and has home oxygen and CPAP machine. Pneumonia was ruled out; 1st chest xray revealed que stionable pneumonia however follow up chest xrays revealed chronic COPD. Urine and blood cultures were negative. Patient's labs improved. Patient symptoms improved. Patient has been offered rehab for weakness and falls however refuses rehab. Patient was discharged home with po antibiotics (see med rec). Discharge time > 35 mins Patient was seen and examined by Dr. Fontenot on this date of service. Documenting this document as a scribe. Disposition: HOME HEALTH SERVICE Condition: Stable Health Concerns: Post Hospitalization: new medications and changes needed to prevent readmission or further decline. Pt educated and given instructions on all concerns. Care Plan Goals: Problem: Respiratory Complications Goal: Improved Uncomplicated Respiratory Status Instructions: Follow provided instructions. Follow up with primary physician as directed. Contact primary care physician or report to the closest Emergency Room if condition worsens. Plan of Treatment: Continue with present treatment and follow up plan. Pt is to keep follow up appointment as instructed and take medications as ordered. Prescriptions: New levofloxacin 250 mg Tablet 250 mg PO Q24H Qty: 7 RF: 0 Transmission Status: Received by [facility] Continued alprazolam 0.5 mg tablet 0.5 mg PO BID PRN (Reason: Anxiety) amitriptyline 50 mg tablet 50 mg PO DAILY amlodipine 10 mg tablet 10 mg PO DAILY aspirin [Aspirin Low Dose] 81 mg Tablet,Delayed Release (Dr/Ec) 81 mg PO DAILY Carvedilol 3.125 MG Tab 3.125 mg PO BID Clopidogrel Bisulfate [Clopidogrel] 75 MG Tab 75 mg PO DAILY fluconazole 100 mg tablet 100 mg PO DAILY furosemide 40 mg tablet 40 mg PO DAILY gabapentin 300 mg capsule 300 mg PO TID levalbuterol tartrate 45 mcg/actuation HFA aerosol inhaler 2 puff INHALATION QID PRN (Reason: Shortness Of Breath) meloxicam 15 mg tablet 15 mg PO DAILY pantoprazole 40 mg tablet,delayed release (DR/EC) 40 mg PO BID potassium chloride 10 mEq tablet extended release 10 meq PO DAILY Spiriva Respimat 2.5 mcg/actuation mist 2 puff INHALATION DAILY spironolactone 25 mg Tablet 25 mg PO DAILY tizanidine 4 mg tablet 4 mg PO HS PRN tramadol 50 mg tablet 50 mg PO DAILY PRN (Reason: Pain) venlafaxine 75 mg capsule,extended release 24hr 75 mg PO DAILY - Follow ups/Referrals Follow ups/Referrals: KHLOE FONTENOT [Primary Care Provider] - 1 WEEK - Instructions Instructions: Dehydration, Adult, [id number], Hypoxia, Hyperkalemia, [id number], Urinary Tract Infection, Adult, Chronic Obstructive Pulmonary Disease Exacerbation, [id number], Dehydration, Elderly, [id number] Forms: Excuse From Work or School, Precautions for COVID19, [facility], Patient Portal, Social Distancing Print Language: ICELANDIC
== END 2021-09-22 15:00 | disposition home health service (06) ==
LOC: MED/SURG
PROVIDERS: ADMIT Internal Medicine; ATTEND Internal Medicine